=== PATIENT | female | born 1965 | race Caucasian/White ===

== ENCOUNTER 2019-07-06 23:20 | Observation (INO) | payer OTHER, SELFPAY ==
--- NOTE | ~2019-07-06 | US_ITS ---
EXAMINATION: US right upper quadrant DATE: 07/07/2019 12:42 INDICATION: Abnormal liver function tests TECHNIQUE: Multiple grayscale and Doppler ultrasound images of the abdomen were obtained. COMPARISON: CT abdomen and pelvis 03/09/2017 FINDINGS: The visualized portions of the head and body of the pancreas are normal. There is diffuse h epatic steatosis. There is normal flow in main portal vein. The gallbladder is absent. The common sirisha t is normal and measures 7 mm. IMPRESSION: 1. Diffuse hepatic steatosis. Reviewed, dictated and finalized at location A. WORKER
--- NOTE | ~2019-07-06 | XR_ITS ---
EXAMINATION: XR chest 2V DATE: 07/06/2019 23:43 INDICATION: Midline chest pain TECHNIQUE: PA and lateral views of the chest are obtained. COMPARISON: 05/17/2016 FINDINGS: The lungs are free of acute opacities. There is no pleural effusion or pneumothorax. The ca rdiomediastinal silhouette is normal. There is mild thoracic spondylosis. Cholecystectomy clips are n oted in the right upper quadrant. IMPRESSION: 1. No acute cardiopulmonary abnormality. Reviewed, dictated and finalized at location A. ING SUBCONTRACTOR
--- NOTE | ~2019-07-06 | NM_ITS ---
EXAMINATION: NM stress w perf spect multi DATE: 07/07/2019 15:37 INDICATION: Chest pain. TECHNIQUE: Rest images were obtained following intravenous administration of 9.7 mCi Tc99m tetrofosmi n (Tillerview). The patient performed an exercise activity. At peak exercise, 28.32 mCi Tc99m tetrofosmi n (Myoview) was administered intravenously, and stress images were obtained. Data was reconstructed i nto short axis and horizontal and vertical long axis SPECT images. Gated SPECT images were also obtai kecia. COMPARISON: None. FINDINGS: There is no definite reversible or fixed perfusion abnormality to suggest ischemia or infar ction. There is no segmental wall motion abnormality. Left ventricular ejection fraction measures > 70%. IMPRESSION: 1. No definite ischemia or infarct. 2. Normal left ventricular ejection fraction measuring >70%. Reviewed, dictated and finalized at location A. ROL SYSTEM COMPUTER SCIENTIST
--- NOTE | 2019-07-06 23:24 | ECG_ITS ---
Measurements Intervals [place] Rate: 71 P: 17 ID: 107 QRS: 2 QRSD: 82 T: 13 QT: 398 QTc: 435 Interpretive Statements SINUS RHYTHM WITH SHORT ID INTERVAL BORDERLINE T WAVE ABNORMALITY- INFERIOR LEADS BASELINE ARTIFACT- I, II, III, AVL, AVF BORDERLINE ECG Electronically Signed On 07-07-2019 15:42:25 ENVIRONMENTAL HEALTH NURSE by Dario Mars D.O.
[2019-07-06 23:44] LABS: Basophils Absolute Auto 0.1 K/mm3 (0.0-0.1); Basophils Percent Auto 0.7 % (0.2-1.2); Eosinophils Absolute Auto 0.3 K/mm3 (0-0.3); Eosinophils Percent Auto 3.5 % (0-4.4); Hematocrit 43.6 % (37.0-47.0); Hemoglobin 14.2 g/dL (12.0-15.0); Immature Granulocyte Absolute 0.03 K/mm3 (0.00-0.031); Immature Granulocyte Percent A 0.3 % (0-0.5); Lymphocytes Percent Auto 31.9 % (18.3-44.2); Mean Corpuscular HGB Conc 32.6 g/dl (32-36); Mean Corpuscular Hemoglobin 27.8 pg (26-34); Mean Corpuscular Volume 85.5 fl (80-100); Mean Platelet Volume 9.9 fl (7.4-10.4); Monocytes Absolute Auto 0.8 K/mm3 (0.1-0.6); Neutrophils Percent Auto 54.6 % (45.5-73.1); Platelet Count Result 359 k/mm3 (150-375); Red Cell Distribution Width 13.4 % (11.5-14.5); White Blood Count 9.1 K/mm3 (4.5-10.0)
[2019-07-06 23:53] LABS: Prothrombin Time 12.8 Seconds (11.1-14.7)
[2019-07-06 23:54] LABS: Partial Thromboplastin Time 33.9 SECONDS (22.3-36.8)
[2019-07-06 23:59] LABS: Blood Urea Nitrogen 9 mg/dL (7-17); Calcium 9.3 mg/dL (8.4-10.2); Carbon Dioxide 32 mmol/L (22-30); Chloride 97 mmol/L (98-107); Estimated Glomerular Filt Rate > 60; Glucose 79 mg/dL (65-105); Potassium 3.4 mmol/L (3.4-5.0); Sodium 140 mmol/L (137-145)
[2019-07-07] VITALS (10 sets, daily range): BP systolic 113–140; BP diastolic 64–90; PULSE 64–97; RESP 12–20; TEMP 36.3–36.8; O2SAT 98–100; BMI 39.5
[2019-07-07 00:09] LABS: Troponin I < 0.012 ng/mL (0.000-0.034)
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
[2019-07-07] MEDS: ASPIRIN 81 MG CHEWABLE TABLET 324 MG PO (00:47)
[2019-07-07] MEDS: KETOROLAC 30 MG/ML VIAL (*BKC) IV PUSH (00:48)
[2019-07-07 01:22] LABS: Alanine Aminotransferase 40 U/L (4-35); Albumin Level 4.6 g/dL (3.5-5.1); Alkaline Phosphatase 137 U/L (38-126); Aspartate Amino Transferase 37 U/L (14-36); Bilirubin,Total 0.6 mg/dL (0.2-1.3); Lipase 150 U/L (23-300)
--- NOTE | 2019-07-07 02:52 | ADMGEN ---
This patient, Zulema Arce, was admitted to [facility] at 0230. Patient/family oriented to hospital policies and general routines including ID bracelet, bed and alarms, visiting hours, pain management, procedures, bathroom and other care routines, personal items, smoking policy, room service/diet, and visiting hours. Valuables list has been completed. Information on how to activate the Rapid Response Team has been discussed. Patient/Family are encouraged to report perceived risks to care and to ask questions if they do not understand what they are told or what they should do.
[2019-07-07 03:14] LABS: Cholesterol 190 mg/dL (0-200); HDL Direct 29 mg/dL; Triglycerides 261 mg/dL (<150)
[2019-07-07 03:23] LABS: Troponin I < 0.012 ng/mL (0.000-0.034)
[2019-07-07 03:26] LABS: LDL Cholesterol Direct 120 mg/dL
[2019-07-07 03:41] LABS: D Dimer 0.27 ug/mL (<0.48)
--- NOTE | 2019-07-07 04:27 | ECG_ITS ---
Measurements Intervals [place] Rate: 63 P: 22 ID: 103 QRS: 3 QRSD: 102 T: 10 QT: 446 QTc: 457 Interpretive Statements SINUS RHYTHM WITH SHORT ID INTERVAL BORDERLINE T WAVE ABNORMALITY- INFERIOR LEADS BASELINE ARTIFACT- I, II, III, AVR, AVL, AVF BORDERLINE ECG Electronically Signed On 07-07-2019 15:44:30 PARTS COUNTER SALES PERSON by Dario Mars D.O.
[2019-07-07 06:15] LABS: Troponin I < 0.012 ng/mL (0.000-0.034)
--- NOTE | 2019-07-07 07:27 | ECG_ITS ---
Measurements Intervals [place] Rate: 65 P: 32 [place]: 105 QRS: 4 QRSD: 87 T: 9 QT: 445 QTc: 464 Interpretive Statements SINUS RHYTHM WITH SHORT [place] INTERVAL BORDERLINE T WAVE ABNORMALITY- II, III, AVR, AVL, AVF BORDERLINE ECG Electronically Signed On 07-07-2019 15:50:46 SCRUBBER SYSTEM ATTENDANT by Dario Mars D.O.
--- NOTE | 2019-07-07 07:43 | PM.IMHP ---
H&P: HPI History of Present Illness Chief complaint: chest pain Narrative: Zulema Arce is a 54 year old female With history of obesity, came to the hospital because of chest pain. Started having chest pain as she was driving last night at 8:00 p.m., heaviness in the center of the chest with no radiation. With that she has some shortness of breath. No known history of coronary disease but she stated that she had a stress test few years ago which was negative. She is not very active but she has mild to moderate dyspnea on exertion orthopnea no PNDs she has mild leg swelling. She gets occasional heartburn. So far cardiac enzymes are negative, EKG is unremarkable. Review of Systems Constitutional: Constitutional: Reports fatigue and Reports lethargy Cardiovascular: Cardiovascular: Reports as per HPI Respiratory: Respiratory: Reports dyspnea on exertion PMFSH Past Medical History Medical History Anemia Arthritis Asthma Depression GERD (gastroesophageal reflux disease) Hx of migraines Ulcer Surgical History Surgical History History of cholecystectomy History of hysterectomy Hx of tubal ligation Family History Family History Father Diabetes mellitus Hypertension Heart disease Emphysema lung Smokeless tobacco use Glaucoma Cataract Heart failure Mother Diabetes mellitus Cerebrovascular accident Osteoporosis Sibling Diabetes mellitus Cerebrovascular accident Sibling Diabetes mellitus Heart disease Smokeless tobacco use Malignant neoplasm of prostate Sibling Diabetes mellitus Epilepsy Suicide Sibling Diabetes mellitus Heart disease Smokeless tobacco use Congestive heart failure Sibling Diabetes mellitus Cerebrovascular accident Sibling Heart disease Smokeless tobacco use Cirrhosis Alcohol abuse Sibling Epilepsy Tumor liver Sibling Cerebrovascular accident Heart disease Smokeless tobacco use Sibling Glaucoma Sibling Heart disease Smokeless tobacco use Crohn disease Sibling Brain tumor Sibling Heart disease Smokeless tobacco use Sibling Graves disease Social History Social History Smoking status: Never smoker Second hand tobacco smoke exposure: Yes (family) Gender identity (if verbalized by the patient): Female Meds Home Medications and Allergies Home Medications Medication Instructions Recorded Confirmed Type albuterol sulfate [Ventolin HFA] 2 puff INHALATION QID 07/07/19 07/07/19 History ascorbic acid (vitamin C) [Vitamin 1 g PO DAILY 07/07/19 07/07/19 History C] aspirin [Aspir-81] 81 mg PO DAILY 07/07/19 07/07/19 History cetirizine [Zyrtec] 10 mg PO DAILY 07/07/19 07/07/19 History duloxetine [Cymbalta] 60 mg PO BID 07/07/19 07/07/19 History furosemide 40 mg PO DAILY 07/07/19 07/07/19 History metoprolol tartrate 25 mg PO BID 07/07/19 07/07/19 History montelukast [Singulair] 10 mg PO HS 07/07/19 07/07/19 History mq-in-CX-vit P-hlzmf-ovz-coQ10 1 cap PO DAILY 07/07/19 07/07/19 History [Daily Multivitamin] pantoprazole [Protonix] 40 mg PO DAILY 07/07/19 07/07/19 History Allergies Allergy/AdvReac Type Severity Reaction Status Date / Time Sulfa (Sulfonamide Allergy Unknown RASH Verified 01/19/17 07:27 Antibiotics) Vital Signs Vital Signs - 24 hr 07/07/19 00:18 07/07/19 01:36 07/07/19 02:30 Temperature 36.8 C 36.3 C L Pulse Rate 73 74 69 Respiratory Rate 16 16 15 Blood Pressure 126/68 140/90 140/80 Pulse Oximetry 100 100 99 07/07/19 05:46 Temperature Pulse Rate 88 Respiratory Rate 20 Blood Pressure 118/74 Pulse Oximetry 98 Exam Narrative: Exam Narrative: Awake alert oriented x3 not in acute distress Neck is supple no obvious JVD, no carotid bruit Chest: Good air entry bilat
--- NOTE | 2019-07-07 14:00 | EST_ITS ---
Patient Info Name: Zulema Arce Age: 54 years : 1965 Gender: Female Ht: 62 in Wt: 216 lbs BSA: 2.12 m2 Exam Date: 07/07/2019 1:44 PM Exam Location: [facility] Stress Exam [facility] Patient Status: Outpatient Admit Date: 07/07/2019 Staff Ordering Physician: Dung Driver MD Attending Provider: Dung Driver MD Exercise Technologist: Annabelle Liang RDCS Exam Type: CA stress test treadmill w NM Study Info Indications R07.89 - Other chest pain A treadmill exercise stress test was performed. Summary 1. Nuclear stress EKG: Patient exercised for 6 minutes on Isaias protocol achieved 7 METS. Heart rate 65 at rest, increased to 168 at peak exercise which was 100% of max predicted heart rate. BP was 150/77 at rest and increased to 212/96 Resting EKG showed sinus rhythm. EKG at peak exercised showed sinus tachycardia with no significant ST changes. Nuclear Stress EKG is negative for inducible ischemia at 100% of max predicted heart rate. Somewhat exaggerated blood pressure response to exercise noted. Findings of the nuclear images to be reported separately. Protocol: Manual Mode Stress ECG Details Stage: REST Duration (min): 7 min : 54 sec Chaudhry: --- Speed (mph): 0.0 Grade (%): 0 HR (bpm): 66 SBP (mmHg): 150 DBP (mmHg): 77 METS: --- Stage: REST Duration (min): 40 min : 39 sec Chaudhry: --- Speed (mph): 0.0 Grade (%): 0 HR (bpm): 79 SBP (mmHg): 150 DBP (mmHg): 77 METS: --- Stage: STAGE 1 Duration (min): 1 min : 0 sec Chaudhry: --- Speed (mph): 1.7 Grade (%): 10 HR (bpm): 132 SBP (mmHg): 150 DBP (mmHg): 77 METS: --- Stage: STAGE 1 Duration (min): 2 min : 0 sec Chaudhry: --- Speed (mph): 1.7 Grade (%): 10 HR (bpm): 146 SBP (mmHg): 150 DBP (mmHg): 77 METS: --- Stage: STAGE 1 Duration (min): 3 min : 0 sec Chaudhry: --- Speed (mph): 1.7 Grade (%): 10 HR (bpm): 152 SBP (mmHg): 156 DBP (mmHg): 83 METS: --- Stage: STAGE 2 Duration (min): 1 min : 0 sec Chaudhry: --- Speed (mph): 2.5 Grade (%): 12 HR (bpm): 161 SBP (mmHg): 156 DBP (mmHg): 83 METS: --- Stage: STAGE 2 Duration (min): 2 min : 0 sec Chaudhry: --- Speed (mph): 2.5 Grade (%): 12 HR (bpm): 168 SBP (mmHg): 166 DBP (mmHg): 88 METS: --- Stage: STAGE 2 Duration (min): 3 min : 0 sec Chaudhry: --- Speed (mph): 2.0 Grade (%): 0 HR (bpm): 163 SBP (mmHg): 166 DBP (mmHg): 88 METS: --- Stage: STAGE 2 Duration (min): 3 min : 30 sec Chaudhry: --- Speed (mph): 2.0 Grade (%): 0 HR (bpm): 157 SBP (mmHg): 166 DBP (mmHg): 88 METS: --- Stage: RECOVERY Duration (min): 0 min : 29 sec Chaudhry: --- Speed (mph): 0.0 Grade (%): 0 HR (bpm): 149 SBP (mmHg): 212 DBP (mmHg): 96 METS: --- Stage: RECOVERY Duration (min): 1 min : 29 sec Chaudhry: --- Speed (mph): 0.0 Grade (%): 0 HR (
--- NOTE | 2019-07-07 17:08 | PC.NURSE ---
1700-pt given d/c orders and instructions. Questions answered and verbalized understanding. PIV removed intact. Ambulated per request to waiting vehicle. No distress noted or verbalized at time of D/C.
--- NOTE | 2019-08-11 17:14 | PM.DS ---
DS: Diagnosis Admitting Diagnosis Admitting Diagnosis: Chest pain, unspecified Discharge Diagnosis (1) Chest pain: Code(s): R07.9 - Chest pain, unspecified Status: Acute Assessment and Plan: Zulema Arce is a 54 year old female With history of obesity, came to the hospital because of chest pain. Started having chest pain as she was driving last night at 8:00 p.m., heaviness in the center of the chest with no radiation. With that she has some shortness of breath. No known history of coronary disease but she stated that she had a stress test few years ago which was negative. She is not very active but she has mild to moderate dyspnea on exertion orthopnea no PNDs she has mild leg swelling. She gets occasional heartburn. So far cardiac enzymes are negative, EKG is unremarkable. she has atypical chest pain, however she has significant risk factors for coronary artery disease. Stress test was done and negative for ischemia. She was discharged in stable condition with follow up with PCP (2) Dyslipidemia: Code(s): E78.5 - Hyperlipidemia, unspecified Status: Acute Assessment and Plan: will check lipid profile treat accordingly DS: Summary Time Spent with Patient Time attestation: Total time spent providing and/or coordinating discharge services: Exam Narrative: Exam Narrative: Awake alert oriented x3 not in acute distress Neck is supple no obvious JVD, no carotid bruit Chest: Good air entry bilaterally, lungs are clear to auscultation and percussion bilaterally Cardiovascular: Regular rate and rhythm, 2/6 systolic murmur noted left sternal border Abdomen: Soft nontender bowel sounds positive Extremities: No edema has good pulses distally bilaterally Discharge Plan Discharge Attending physician on discharge: Lizeth Tidwell Consulting providers: James Petty ; Dario Mars ; Ghulam Lopez V. Discharging Clinician: Lizeth Tidwell Anticipated Discharge Date/Time: 07/07/19 16:35 Patient Disposition: Home, Self-Care Activity: unlimited Diet: as tolerated and low cholesterol Patient Instructions: Chest Pain (ED) Stand Alone Forms: General Discharge Information Follow-up/Referrals: José Miguel Nayak MD [Primary Care Provider] - Discharge Medications: Continued furosemide 40 mg Tablet 40 mg PO DAILY RF: 0 pantoprazole [Protonix] 40 mg Tablet,Delayed Release (Dr/Ec) 40 mg PO DAILY RF: 0 montelukast [Singulair] 10 mg Tablet 10 mg PO HS RF: 0 metoprolol tartrate 25 mg Tablet 25 mg PO BID RF: 0 duloxetine [Cymbalta] 60 mg Capsule,Delayed Release(Dr/Ec) 60 mg PO BID RF: 0 ascorbic acid (vitamin C) [Vitamin C] 1,000 mg Tablet 1 g PO DAILY RF: 0 Zyrtec 10 mg Capsule 10 mg PO DAILY RF: 0 Daily Multivitamin 200-100-500 mcg Capsule 1 cap PO DAILY RF: 0 aspirin [Aspir-81] 81 mg Tablet,Delayed Release (Dr/Ec) 81 mg PO DAILY RF: 0 albuterol sulfate [Ventolin HFA] 90 mcg/actuation Hfa Aerosol Inhaler 2 puff INHALATION QID RF: 0 Date of admission: 07/07/19 01:27 Primary Care Provider: José Miguel Nayak Admitting Provider: Dung Driver Date/Time: 07/07/19 17:00 Attending physician on admission: Lizeth Tidwell Condition: Stable
== END 2019-07-07 17:00 | disposition home or self-care (01) ==
LOC: ANHED 07-07 01:28 → ANHCPC 07-07 01:41
PROVIDERS: Admitting Provider Specialist; Emergency Provider Emergency Medicine; PCP Family Medicine; Visit Provider Internal Medicine
DX: R07.89 Other chest pain (principal); E78.5 Hyperlipidemia, unspecified; J45.909 Unspecified asthma, uncomplicated; K21.9 Gastro-esophageal reflux disease without esophagitis; M19.90 Unspecified osteoarthritis, unspecified site; F32.9 Major depressive disorder, single episode, unspecified; Z79.82 Long term (current) use of aspirin; Z79.899 Other long term (current) drug therapy; Z88.2 Allergy status to sulfonamides
CPT/HCPCS: 36415; 71046; 76705; 78452; 80048; 80061; 80076; 83690; 84484; 85025; 85380; 85610; 85730; 93005; 93017; 96374; 99285; A9270; A9502; G0378; J1885

== ENCOUNTER 2019-11-05 18:41 | Emergency (ER) | payer OTHER, SELFPAY ==
--- NOTE | ~2019-11-05 | CT_ITS ---
EXAMINATION: CT brain wo con DATE: 11/05/2019 19:36 INDICATION: Unresponsive TECHNIQUE: Computed tomography (CT) of the head was performed without intravenous contrast. Sagittal and coronal reconstructions were performed. The mA was adjusted according to patient size. Iterative reconstruction technique was employed. The dose-length product was 605.33 mGy-cm. COMPARISON: None FINDINGS: No acute intracranial hemorrhage, acute infarction or abnormal extra axial fluid collection. Ventricl es are normal and symmetric. No mass/mass effect. The orbits, paranasal sinuses and mastoid air cells are normal. IMPRESSION: 1. Normal head CT. Reviewed, dictated and finalized at location A. IMPRESSION: 1. Normal head CT.
[2019-11-05 18:50] VITALS: BP 151/86; PULSE 108; RESP 16; TEMP 37.4; O2SAT 100
--- NOTE | 2019-11-05 19:06 | ECG_ITS ---
Measurements Intervals [place] Rate: 95 P: 54 AR: 128 QRS: -1 QRSD: 81 T: 39 QT: 365 QTc: 461 Interpretive Statements SINUS RHYTHM BASELINE WANDER- AVL, V4-V5 NORMAL ECG Electronically Signed On 11-06-2019 7:37:43 CDT by Dario Mars D.O.
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
[2019-11-05 19:26] LABS: Base Excess ABG 2.3 mmol/L (0-2); HCO3 ABG 25.8 mmol/L (23-29); Oxygen Content ABG 18.9 %vol (16.0-22.0); Oxygen Saturation ABG 92.3 % (95-97); Oxyhemoglobin 91.8 % (94-100); PCO2 ABG 36.3 mmHg (35-45); PO2 ABG 59.5 mmHg (80-90); Total Hemoglobin 14.7 g/dL; pH ABG 7.47 (7.35-7.45)
[2019-11-05 19:26] LABS: Basophils Absolute Auto 0.05 K/mm3 (0.00-0.10); Basophils Percent Auto 0.5 % (0.0-1.0); Eosinophils Absolute Auto 0.16 K/mm3 (0.02-0.50); Eosinophils Percent Auto 1.7 % (1.0-6.0); Hematocrit 42.1 % (35.0-49.0); Immature Granulocyte Absolute 0.03 K/mm3 (0.00-0.00); Immature Granulocyte Percent A 0.3 % (0.0-0.0); Lymphocytes Absolute Auto 1.87 K/mm3 (1.10-4.50); Lymphocytes Percent Auto 20.1 % (18.0-42.0); Mean Corpuscular HGB Conc 33.3 g/dL (32.0-36.0); Mean Corpuscular Hemoglobin 28.3 pg (27.0-31.0); Mean Corpuscular Volume 85.1 fL (78.0-102.0); Mean Platelet Volume 10.3 fl (9.2-11.8); Monocytes Percent Auto 6.4 % (2.0-11.0); Neutrophils Absolute Auto 6.6 K/mm3 (1.7-7.2); Platelet Count Result 315 K/mm3 (150-420); Red Blood Count 4.95 M/mm3 (4.20-5.40); Red Cell Distribution Width 13.4 % (11.6-14.4); White Blood Count 9.3 K/mm3 (4.8-10.8)
[2019-11-05 19:28] LABS: Device ROOM AIR; Modified Allen's Test Unable to perform; Site Drawn RIGHT RADIAL
[2019-11-05 19:34] VITALS: BP 131/64; PULSE 88; RESP 14; O2SAT 97
--- NOTE | 2019-11-05 19:35 | PC.NURSE ---
Patient returned from CT, VSS, remains unresponsive to stimuli. Pt with eyes open and blinking. Three ticks removed from patient skin
[2019-11-05 19:43] LABS: Add Urine Microscopic? NO; Appearance Urine Clear (Clear); Bilirubin Urine Negative (Negative); Blood Urine Negative (Negative); Color Urine Yellow (Yellow); Glucose Urine UA Negative (Negative); Ketones Urine Negative (Negative); Leukocyte Esterase Ur Negative (Negative); Nitrate Urine Negative (Negative); Protein Urine Negative (Negative); pH Urine 5.5 (5.0-8.0)
[2019-11-05 19:46] LABS: Alanine Aminotransferase 33 U/L (14-59); Albumin Level 3.9 g/dL (3.4-5.0); Alkaline Phosphatase 135 U/L (46-116); Anion Gap 14.6 mmol/L (7-16); Aspartate Amino Transferase 26 U/L (15-37); Bilirubin,Total 0.6 mg/dL (0.00-1.00); Blood Urea Nitrogen 15 mg/dL (7-18); Calcium 9.6 mg/dL (8.5-10.1); Carbon Dioxide 31 mmol/L (21-32); Chloride 101 mmol/L (98-108); Estimated Glomerular Filt Rate 47; Glucose 100 mg/dL (70-99); Osmolality Calculated 296 mOsm/kg (285-295); Potassium 3.6 mmol/L (3.5-5.1); Salicylate 1.7 mg/dL (2.8-20.0); Sodium 143 mmol/L (136-145); Total Protein 7.8 g/dL (6.4-8.2)
[2019-11-05 19:58] LABS: Amphetamine Screen Urine Negative (Negative); Barbiturate Screen Urine Negative (Negative); Benzodiazepines Screen Urine Negative (Negative); Cannabinoid Screen Urine Negative (Negative); Cocaine Screen Urine Negative (Negative); Methadone Screen Urine Negative (Negative); Opiate Screen Urine Negative (Negative); Phencyclidine Screen Urine Negative (Negative)
[2019-11-05 20:01] LABS: Acetaminophen 0 ug/mL (10-30)
[2019-11-05 20:13] VITALS: BP 120/58; PULSE 85; RESP 16; O2SAT 94
[2019-11-05 20:34] LABS: Ethanol < 3 mg/dL (0-6)
[2019-11-05 21:22] VITALS: BP 137/65; PULSE 94; RESP 14; O2SAT 100
--- NOTE | 2019-11-05 21:23 | PC.NURSE ---
Patient requires transfer for neurological evaluation. Spouse at bedside, he is requesting [facility]
[2019-11-05 21:55] VITALS: BP 123/64; PULSE 92; RESP 16; O2SAT 96
--- NOTE | 2019-11-05 21:56 | PC.NURSE ---
Patient accepted to [facility] and will be transferred via [facility] due to no [facility] available.
[2019-11-05 22:09] VITALS: BP 123/67; PULSE 88; RESP 16; O2SAT 100
[2019-11-05 22:39] LABS: Glucose Point of Care 100 (65-105)
== END 2019-11-05 22:30 | disposition short-term general hospital (02) ==
PROVIDERS: Emergency Provider Family Medicine; PCP Family Medicine
DX: F06.1 Catatonic disorder due to known physiological condition (principal); F32.9 Major depressive disorder, single episode, unspecified; J45.909 Unspecified asthma, uncomplicated; K21.9 Gastro-esophageal reflux disease without esophagitis; Z79.899 Other long term (current) drug therapy
CPT/HCPCS: 36415; 36600; 70450; 80053; 80307; 81003; 82805; 83605; 85025; 87040; 93005; 99283; 99285

== ENCOUNTER 2021-06-09 13:29 | Outpatient (CLI) | payer OTHER, SELFPAY ==
--- NOTE | 2021-06-09 13:40 | PC.NURSE ---
Pt to room 226 per wc. Infusion plan of care explained. Pt read and signed the consent. Pt has no questions or concerns. Oriented to room. Call roth in reach. Reminded to call with needs.
--- NOTE | 2021-06-09 13:59 | PC.NURSE ---
PT to room 226 per wc. A&Ox3. Infusion plan of care explained. Pt read and signed consent. Pt has no questions or complaints. Oriented to room. Call roth in reach. Reminded to call with needs.
[2021-06-09] MEDS: ACETAMINOPHEN 325 MG TABLET 650 MG PO (14:05)
[2021-06-09] MEDS: FAMOTIDINE 20 MG TABLET PO (14:06)
[2021-06-09] MEDS: diphenhydrAMINE HCl CAP 25 MG CAPSULE PO (14:06)
--- NOTE | 2021-06-09 15:20 | PC.NURSE ---
Pt has no complaints. Discharged to home per .
== END 2021-06-09 13:30 | disposition home or self-care (01) ==
PROVIDERS: PCP Family Medicine; Visit Provider Family Medicine
DX: U07.1 COVID-19 (principal); J44.9 Chronic obstructive pulmonary disease, unspecified
CPT/HCPCS: A9270; M0245; Q0245

== ENCOUNTER 2022-01-28 19:44 | Emergency (ER) | payer OTHER, SELFPAY ==
--- NOTE | ~2022-01-28 | XR_ITS ---
EXAM: XR knee RT min 4V DATE: 01/28/2022 20:08 HISTORY: pain-nwb . COMPARISON: None available. FINDINGS: Decreased mineralization. No fracture or dislocation. No lytic or blastic lesion. Mild med ial joint space narrowing and osteophytosis. No erosion or periosteal change. Soft tissues within nor mal limits. Large volume joint fluid. IMPRESSION: No acute osseous finding in the right knee. Large right knee joint effusion. Reviewed, dictated and finalized at location K.
[2022-01-28 19:47] VITALS: BP 135/98; PULSE 80; RESP 16; O2SAT 100
--- NOTE | 2022-01-28 21:22 | ED.LOWEXIN ---
HPI - Extremity Injury (Lower) General Chief Complaint: Extremity Injury, Lower Stated Complaint: right knee and leg pain Time Seen by Provider: 01/28/22 21:19 Related Data Home Medications Medication Instructions Recorded Confirmed albuterol sulfate 90 mcg/actuation 2 puff inhalation QID 07/07/19 11/05/19 aerosol inhaler (Ventolin HFA) aspirin 81 mg tablet,delayed 81 mg PO DAILY 07/07/19 11/05/19 release (Aspir-) duloxetine 60 mg capsule,delayed 60 mg PO BID 07/07/19 11/05/19 release (Cymbalta) furosemide 40 mg tablet 40 mg PO DAILY 07/07/19 11/05/19 metoprolol tartrate 25 mg tablet 25 mg PO BID 07/07/19 11/05/19 [id number]-zld-OS 200 mcg-vit K 100 1 cap PO DAILY 07/07/19 11/05/19 mcg-lycop 500 [id number] capsule (Daily Multivitamin) pantoprazole 40 mg tablet,delayed 40 mg PO DAILY 11/05/19 11/05/19 release Allergies Allergy/AdvReac Type Severity Reaction Status Date / Time Sulfa (Sulfonamide Allergy Unknown RASH Verified 01/28/22 21:17 Antibiotics) [facility] Past Medical History Medical History (Updated 01/29/22 @ 00:23 by Elliott Trivedi MD) Anemia Arthritis Asthma Depression GERD (gastroesophageal reflux disease) Hx of migraines Ulcer Surgical History Surgical History History of cholecystectomy History of hysterectomy Hx of tubal ligation Family History Family History Father Diabetes mellitus Hypertension Heart disease Emphysema lung Smokeless tobacco use Glaucoma Cataract Heart failure Mother Diabetes mellitus Cerebrovascular accident Osteoporosis Sibling Diabetes mellitus Cerebrovascular accident Sibling Diabetes mellitus Heart disease Smokeless tobacco use Malignant neoplasm of prostate Sibling Diabetes mellitus Epilepsy Suicide Sibling Diabetes mellitus Heart disease Smokeless tobacco use Congestive heart failure Sibling Diabetes mellitus Cerebrovascular accident Sibling Heart disease Smokeless tobacco use Cirrhosis Alcohol abuse Sibling Epilepsy Tumor liver Sibling Cerebrovascular accident Heart disease Smokeless tobacco use Sibling Glaucoma Sibling Heart disease Smokeless tobacco use Crohn disease Sibling Brain tumor Sibling Heart disease Smokeless tobacco use Sibling Graves disease Social History Social History Smoking status: Never smoker Second hand tobacco smoke exposure: Yes (family) Gender identity (if verbalized by the patient): Female Course Vital Signs Vital signs: Vital Signs Pulse Rate 80 01/28/22 19:47 Respiratory Rate 16 01/28/22 19:47 Blood Pressure 135/98 H 01/28/22 19:47 Pulse Oximetry 100 01/28/22 19:47 Pulse Rate 80 01/28/22 19:47 Respiratory Rate 16 01/28/22 19:47 Blood Pressure 135/98 H 01/28/22 19:47 Pulse Oximetry 100 01/28/22 19:47 MDM - Extremity Injury (Lower) Lab Data Labs: Lab Results 01/28/22 01/28/22 01/28/22 Range/Units 22:43 22:43 22:43 Synovial Source Synovial fluid Synovial Color Red (Colorless) Synovial Appearance Clear (Clear) Synovial RBC 19733 H (0-0) /uL Synovial Nuc Cells 488 H (0-200) /uL Synovial Neutrophils 20 (0-25) % Synovial Lymphocytes 9 % Synovial Monocytes 51 % Synovial Macrophages 18 % Synovial Other Cells 2 % Synovial Crystals (None Seen) Synovial Glucose Pending Synovial Total Protein Pending 01/28/22 Range/Units 22:43 Synovial Source Synovial Color (Colorless) Synovial Appearance (Clear) Synovial RBC (0-0) /uL Synovial Nuc Cells (0-200) /uL Synovial Neutrophils (0-25) % Synovial Lymphocytes % Synovial Monocytes % Synovial Macrophages % Synovial Other Cells % Synovial Crystals None seen (None Seen) Synovial Glucos
[2022-01-28] MEDS: HYDROcodone/acetaminophen (*CRX) 5-325 MG TABLET 2 TAB PO (22:47)
[2022-01-28 23:51] LABS: Appearance Synovial Fluid Clear (Clear); Color Synovial Fluid Red (Colorless); Nucleated Cell Synovial Fluid 488 /uL (0-200); Source Synovial Fluid Synovial fluid
[2022-01-28 23:52] LABS: Lymphocytes Synovial Fluid 9 %; Macrophages Synovial Fluid 18 %; Monocytes Synovial Fluid 51 %; Neutrophils Synovial Fluid 20 % (0-25); Other Cells Synovial Fluid 2 %; RBC Synovial Fluid 24590 /uL (0-0)
[2022-01-28 23:53] LABS: Crystals Synovial Fluid None Seen (None Seen)
--- NOTE | 2022-01-29 00:02 | ED.GENADULT ---
HPI - General Adult General Chief complaint: Extremity Injury, Lower Stated complaint: right knee and leg pain Time Seen by Provider: 01/28/22 21:19 History of Present Illness HPI narrative: This is a 57-year-old female with a history of arthritis presenting to ED with right leg pain. Patient says that the pain has been ongoing for the last 2 weeks on and off. However the last 2 days it has gotten significantly worse. It is worse at the end of the day. It improves in the morning. She has also noted that she has had increased swelling of the knee. She has taken occasional Advil for pain control. It is not provided much relief. Patient denies any warmth or redness to the knee. She denies any history of trauma. She denies any history of STDs, IV drug abuse these. Related Data Home Medications Medication Instructions Recorded Confirmed albuterol sulfate 90 mcg/actuation 2 puff inhalation QID 07/07/19 11/05/19 aerosol inhaler (Ventolin HFA) aspirin 81 mg tablet,delayed 81 mg PO DAILY 07/07/19 11/05/19 release (Aspir-) duloxetine 60 mg capsule,delayed 60 mg PO BID 07/07/19 11/05/19 release (Cymbalta) furosemide 40 mg tablet 40 mg PO DAILY 07/07/19 11/05/19 metoprolol tartrate 25 mg tablet 25 mg PO BID 07/07/19 11/05/19 [id number]-DH 200 mcg-vit K 100 1 cap PO DAILY 07/07/19 11/05/19 mcg-lycop 500 [id number] capsule (Daily Multivitamin) pantoprazole 40 mg tablet,delayed 40 mg PO DAILY 11/05/19 11/05/19 release Allergies Allergy/AdvReac Type Severity Reaction Status Date / Time Sulfa (Sulfonamide Allergy Unknown RASH Verified 01/28/22 21:17 Antibiotics) Review of Systems Review of Systems: CONSTITUTIONAL: Denies night sweats. EYES: No eye pain ENT: Denies rhinorrhea CARDIOVASCULAR: Denies palpitations RESPIRATORY: Denies hemoptysis GASTROINTESTINAL: Denies hematemesis GENITOURINARY: Denies hematuria. SKIN: Denies rash MUSCULOSKELETAL: Denies myalgia. NEUROLOGIC: Denies weakness. PSYCHIATRIC: Denies delusions PMFSH Past Medical History Medical History (Updated 01/29/22 @ 00:23 by Elliott Trivedi MD) Anemia Arthritis Asthma Depression GERD (gastroesophageal reflux disease) Hx of migraines Ulcer Surgical History Surgical History History of cholecystectomy History of hysterectomy Hx of tubal ligation Family History Family History Father Diabetes mellitus Hypertension Heart disease Emphysema lung Smokeless tobacco use Glaucoma Cataract Heart failure Mother Diabetes mellitus Cerebrovascular accident Osteoporosis Sibling Diabetes mellitus Cerebrovascular accident Sibling Diabetes mellitus Heart disease Smokeless tobacco use Malignant neoplasm of prostate Sibling Diabetes mellitus Epilepsy Suicide Sibling Diabetes mellitus Heart disease Smokeless tobacco use Congestive heart failure Sibling Diabetes mellitus Cerebrovascular accident Sibling Heart disease Smokeless tobacco use Cirrhosis Alcohol abuse Sibling Epilepsy Tumor liver Sibling Cerebrovascular accident Heart disease Smokeless tobacco use Sibling Glaucoma Sibling Heart disease Smokeless tobacco use Crohn disease Sibling Brain tumor Sibling Heart disease Smokeless tobacco use Sibling Graves disease Social History Social History Smoking status: Never smoker Second hand tobacco smoke exposure: Yes (family) Gender identity (if verbalized by the patient): Female Exam Narrative: APPEARANCE: No apparent distress. Head atraumatic. EYES: PERRLA/EOMI, NOSE: Normal no drainage NECK: Supple, Trachea midline RESPIRATORY: CTAB, No increased work of breathing. CARDIOVASCULAR: S1S2 appreciated ABDOMINAL: Soft, nontender, nondistended, MUSCULOSKELETAl: Noted effusion of the righ
[2022-01-29 00:38] VITALS: BP 140/87; PULSE 80; RESP 16; O2SAT 99
--- NOTE | 2022-01-29 04:36 | PC.NURSE ---
ON 01/29/2022 AT 0014 LAB CALLED AND MADE THIS CHARGE NURSE AWARE OF THIS PT'S GRAM STAIN OF SYNOVIAL FLUID RESULTED IN NO ORGANISMS SEEN.
[2022-02-04 10:32] LABS: Total Protein Synovial Fluid 3.1
== END 2022-01-29 00:34 | disposition home or self-care (01) ==
PROVIDERS: Emergency Provider Emergency Medicine; PCP Family Medicine
DX: M17.11 Unilateral primary osteoarthritis, right knee (principal); J45.909 Unspecified asthma, uncomplicated; K21.9 Gastro-esophageal reflux disease without esophagitis; F32.A Depression, unspecified; Z86.2 Personal history of diseases of the blood and blood-forming organs and certain disorders involving the immune mechanism; Z79.82 Long term (current) use of aspirin; Z90.710 Acquired absence of both cervix and uterus
CPT/HCPCS: 20605; 20610; 73564; 82945; 84157; 87070; 87075; 87205; 88108; 89051; 89060; 99283; A9270

== ENCOUNTER 2022-01-29 20:06 | Emergency (ER) | payer OTHER, SELFPAY ==
--- NOTE | ~2022-01-29 | XR_ITS ---
EXAMINATION: XR knee RT min 4V DATE: 01/29/2022 20:42 INDICATION: Right knee pain and bruising post fall TECHNIQUE: Anteroposterior, 2 oblique and crosstable lateral views of the right knee were obtained COMPARISON: None. FINDINGS: Alignment is normal. No fracture. Mild joint space narrowing in the medial compartment. Small to mod erate-sized right knee joint effusion without layering lipohemarthrosis. Soft tissues are otherwise u nremarkable. IMPRESSION: 1. Small to moderate-sized right knee joint effusion. No acute osseous abnormality. 2. Mild joint space narrowing consistent with at least mild osteoarthritis in the medial compartment. Reviewed, dictated and finalized at location A. IMPRESSION: 1. Small to moderate-sized right knee joint effusion. No acute osseous abnormal ity. 2. Mild joint space narrowing consistent with at least mild osteoarthritis in t he medial compartment.
[2022-01-29 20:09] VITALS: BP 143/69; PULSE 78; RESP 18; TEMP 36.4; O2SAT 98
--- NOTE | 2022-01-29 20:38 | ED.GENADULT ---
HPI - General Adult General Chief complaint: Extremity Injury, Lower Stated complaint: Right knee pain Time Seen by Provider: 01/29/22 20:19 History of Present Illness HPI narrative: 57-year-old female presented the emergency department for evaluation of right knee pain. Patient was seen in the emergency department yesterday and had a therapeutic tap on her right knee. Patient states that there is no evidence of of infection. Patient did have follow-up with her primary care physician was started on steroids. Patient also does have an outpatient MRI ordered. Patient was walking up a flight of stairs today and fell forward and did injure her right knee again. Patient does have increased pain with range of motion and weightbearing. Patient denies any other pain or injury. Related Data Home Medications Medication Instructions Recorded Confirmed albuterol sulfate 90 mcg/actuation 2 puff inhalation QID 07/07/19 11/05/19 aerosol inhaler (Ventolin HFA) aspirin 81 mg tablet,delayed 81 mg PO DAILY 07/07/19 11/05/19 release (Aspir-) duloxetine 60 mg capsule,delayed 60 mg PO BID 07/07/19 11/05/19 release (Cymbalta) furosemide 40 mg tablet 40 mg PO DAILY 07/07/19 11/05/19 metoprolol tartrate 25 mg tablet 25 mg PO BID 07/07/19 11/05/19 agnljzte-hhy-IP 200 mcg-vit K 100 1 cap PO DAILY 07/07/19 11/05/19 mcg-lycop 500 fug-[id number]-N10 capsule (Daily Multivitamin) pantoprazole 40 mg tablet,delayed 40 mg PO DAILY 11/05/19 11/05/19 release methylprednisolone 4 mg tablets in mg 01/29/22 01/29/22 a dose pack Allergies Allergy/AdvReac Type Severity Reaction Status Date / Time Sulfa (Sulfonamide Allergy Unknown RASH Verified 01/29/22 20:08 Antibiotics) Review of Systems Review of Systems: CONSTITUTIONAL: Denies fever, chills, or sweats. EYES: Denies visual changes, redness, or discharge. ENT: Denies rhinorrhea, congestion, sore throat, or otalgia. CARDIOVASCULAR: Denies chest pain, palpitations, or edema. RESPIRATORY: Denies cough or dyspnea. GASTROINTESTINAL: Denies abdominal pain, nausea, vomiting, or diarrhea. GENITOURINARY: Denies dysuria or hematuria. SKIN: Denies rash or itching. MUSCULOSKELETAL: See HPI NEUROLOGIC: Denies headache, numbness, or weakness. PSYCHIATRIC: Denies anxiety or depression. [facility] Past Medical History Medical History (Updated 01/29/22 @ 21:07 by Nikita Singh MD) Anemia Arthritis Asthma Depression GERD (gastroesophageal reflux disease) Hx of migraines Ulcer Surgical History Surgical History History of cholecystectomy History of hysterectomy Hx of tubal ligation Family History Family History Father Diabetes mellitus Hypertension Heart disease Emphysema lung Smokeless tobacco use Glaucoma Cataract Heart failure Mother Diabetes mellitus Cerebrovascular accident Osteoporosis Sibling Diabetes mellitus Cerebrovascular accident Sibling Diabetes mellitus Heart disease Smokeless tobacco use Malignant neoplasm of prostate Sibling Diabetes mellitus Epilepsy Suicide Sibling Diabetes mellitus Heart disease Smokeless tobacco use Congestive heart failure Sibling Diabetes mellitus Cerebrovascular accident Sibling Heart disease Smokeless tobacco use Cirrhosis Alcohol abuse Sibling Epilepsy Tumor liver Sibling Cerebrovascular accident Heart disease Smokeless tobacco use Sibling Glaucoma Sibling Heart disease Smokeless tobacco use Crohn disease Sibling Brain tumor Sibling Heart disease Smokeless tobacco use Sibling Graves disease Social History Social History Smoking status: Never smoker Second hand tobacco smoke exposure: Yes (family) Gender identity (if verbalized by the patient): Female Exam Narrative: APPEARANCE: Well appearing, no
== END 2022-01-29 21:24 | disposition home or self-care (01) ==
PROVIDERS: Emergency Provider Emergency Medicine; PCP Family Medicine
DX: S89.91XA Unspecified injury of right lower leg, initial encounter (principal); J45.909 Unspecified asthma, uncomplicated; K21.9 Gastro-esophageal reflux disease without esophagitis; Z86.2 Personal history of diseases of the blood and blood-forming organs and certain disorders involving the immune mechanism; Z79.82 Long term (current) use of aspirin; M17.11 Unilateral primary osteoarthritis, right knee; W10.9XXA Fall (on) (from) unspecified stairs and steps, initial encounter
CPT/HCPCS: 73564; 99283

== ENCOUNTER 2022-03-04 15:02 | Outpatient (RCR) | payer OTHER, SELFPAY ==
--- NOTE | 2022-03-04 16:24 | PTOPEVAL1 ---
Assessment and note entered by JT File, PT Evaluation Information Assessment Status Evaluation Diagnosis R knee pain Onset 01/18/22 Subjective Information patient reports she has been having pain in the R knee. she reports it began as infrequent pain. however, one morning she woke up and was unable to walk. she reports she went to the ER and was told she has an effusion in the knee. she reports they removed 50cc of fluid from the knee. she reports they did do an xray that day. she reports she followed up with her primary care the next day who gave her an oral steroid. she reports she fell coming home from the doctor that day when she was walking up her steps. she reports she went back to the ER after her fall to evaluate for any new damage. she reports she now uses crutches when her pain is so increased. she reports walking further than in her home causes increased pain. she reports she had an MRI of the R knee. she reports the MD thinks he may have seen a tear, but the report of the MRI did not show anything. she reports she had an injection of the R knee and was given another oral steroid. she reports the injection helped a bit. she reports she has increased pain with bending the knee fully back and with walking more than outside the home. she reports she is unable to squat. Reported Pain Level Pain Score 2: Self Report Assessment PT Clinical Summary mrs. palma presents to skilled PT with R knee pain from insidious onset. she presents this date with tenderness to palpation, decreased strength, decreased flexion rom compared to the L LE, and abnormal gait mechanics. she presents with signs and symptoms of possible medial hamstrings tendonitis and possible R medial meniscus meniscus /medial knee OA. she would do well to attend and participate in skilled PT to improve her objective /functional deficits and return to her prior level functional activity performance/quality of life. Plan of Care Interventions Electrical Stimulation,Gait Training,Hot Pack/Cold Pack,Manual Therapy,Neuro Re-education, Therapeutic Activities,Therapeutic Exercise PT Services Indicated Yes Treatment Frequency and 2x weekly for 8 visits Duration These treatments will address the objective and functional deficits as defined above. The patient will be advanced safely and appropriately in order for the patient to p
--- NOTE | 2022-03-30 08:54 | PTOPPROG ---
Assessment and note entered by Shantel Harrison DPT Evaluation Information Assessment Status Progress Diagnosis R knee pain Onset 01/18/22 Subjective Information Pt reports that overall, her knee is doing much better but it still gives her trouble especially after doing activities for prolonged periods of time. She notes most pain when initially standing up or when walking on it a lot. Assessment PT Clinical Summary Pt presents to physical therapy with significant improvements in strength and pain since her initial evaluation. She is still limited in her range of motion, gait pattern, and pain with functional activities such as squatting, walking, and using stairs. She will benefit from additional skilled PT to further facilitate symptom relief, improve the aforementioned impairments, and return to full functional and recreational activities. Plan of Care PT Services Indicated Yes Treatment Frequency and 1x week for 4 visits Duration These treatments will address the objective and functional deficits as defined above. The patient will be advanced safely and appropriately in order for the patient to progress towards his/her prior level of function. Additional exercises will be introduced and as well as a comprehensive home exercise program upon discharge, if needed, ?to ensure carryover of functional gains achieved in the clinic. This treatment plan has been reviewed and agreement upon by the patient.
--- NOTE | 2022-04-27 08:08 | PTOPDC ---
Assessment and note entered by JT File, PT Evaluation Information Assessment Status Discharge Diagnosis R knee pain Onset 01/18/22 Subjective Information patient reports she has no difficulty walking short distances, but increased pain with walking longer distances. she reports the transition from sitting to standing causes increased pain, as well as, squatting to the floor. she reports even activities of sweeping and mopping are more painful. she reports she has no symptoms of locking or catching in the R knee. she reports most of her pain is along the inside of the R knee . Reported Pain Level Pain Score 2: Self Report Assessment PT Clinical Summary mrs. palma continues to present with pain in the medial R knee with increased activities and prolonged sitting. she continues to display pain with medial mcmurrays test, palpation of the medial jt line of the R knee, and medial jt line pain with valgus stress test of the R knee. she has not met any goals other than for HEP education and mm flexibility. despite her negative imaging, jojo continues to present with signs and symptoms of a medial R meniscus tear. she will DC skilled PT this date due to lack of significant progress or improvement made. she would do well to return to MD for follow and guidance on next steps. Plan of Care Treatment Frequency and DC to independent HEP and MD follow up Duration
== END 2022-04-27 15:27 | disposition home or self-care (01) ==
LOC: CHSPT 15:02
PROVIDERS: PCP Family Medicine; Visit Provider Orthopaedic Surgery
DX: M25.561 Pain in right knee (principal)
CPT/HCPCS: 97014; 97110; 97112; 97161; 97530; G0283

== ENCOUNTER 2022-05-18 16:42 | Outpatient (CLI) | payer OTHER, SELFPAY ==
--- NOTE | ~2022-05-18 | XR_ITS ---
EXAMINATION: XR foot LT min 3V DATE: 05/18/2022 17:05 INDICATION: Left foot pain and swelling TECHNIQUE: Dorsoplantar, lateral, and 2 oblique views of the left foot were obtained. COMPARISON: None. FINDINGS: Bone alignment is normal. There is no fracture. There is dorsal soft tissue swelling of the foot overlying the metatarsals. A plantar calcaneal enthesophyte is noted. IMPRESSION: 1. Soft tissue swelling without acute osseous abnormality. Reviewed, dictated and finalized at location A. TRADER
== END 2022-05-18 16:43 | disposition home or self-care (01) ==
LOC: CHSIMG 16:45
PROVIDERS: PCP Family Medicine; Visit Provider Family Medicine
DX: M79.675 Pain in left toe(s) (principal)
CPT/HCPCS: 73630

== ENCOUNTER 2022-08-06 10:17 | Outpatient (CLI) | payer OTHER, BC, SELFPAY ==
--- NOTE | ~2022-08-06 | XR_ITS ---
Left foot Technique: AP, oblique, and lateral views were obtained. Clinical History: Gout COMPARISON: 05/18/2022 Findings: No acute fracture or dislocation is seen. Osseous alignment is anatomic. Plantar calcaneal spur noted. Joint spaces are otherwise preserved without erosive or degenerative change. Soft tissues are unremarkable. Impression: Plantar calcaneal spur, otherwise unremarkable exam. Reviewed, dictated and finalized at location . PORTER Impression: Plantar calcaneal spur, otherwise unremarkable exam.
== END 2022-08-06 10:18 | disposition home or self-care (01) ==
LOC: CHSIMG 10:21
PROVIDERS: PCP Family Medicine; Visit Provider Family Medicine
DX: M10.072 Idiopathic gout, left ankle and foot (principal); M77.32 Calcaneal spur, left foot
CPT/HCPCS: 73630

== ENCOUNTER 2022-09-29 14:05 | Observation (INO) | payer OTHER, BC, SELFPAY ==
[2022-09-29] VITALS (48 sets, daily range): BP systolic 106–139; BP diastolic 57–82; PULSE 80–123; RESP 7–22; TEMP 36.2–36.6; O2SAT 95–100; BMI 35.5
--- NOTE | ~2022-09-29 | CT_ITS ---
EXAMINATION: CT chest abdomen pelvis wo con DATE: 09/30/2022 14:54 INDICATION: Nausea and vomiting TECHNIQUE: Transaxial computed tomographic images of the chest, abdomen, and pelvis were obtained wit hout intravenous contrast. The dose-length product (DLP) was 1186.14 mGy-cm. Automated exposure contr ol and iterative reconstruction technique were employed. COMPARISON: 03/09/2017 FINDINGS: CHEST CT: There is mild dependent atelectasis. No focal airspace opacities are identified. There are a few smal l, thin-walled pulmonary cysts. No pleural effusion or pneumothorax. No pathologically enlarged thora cic lymph nodes are identified. The heart size is normal. Calcified pulmonary nodules and calcified m ediastinal lymph nodes are consistent with old granulomatous disease. There is mild thoracic spondyl osis. ABDOMEN/PELVIS CT: Punctate calcifications in otherwise normal appearing liver and spleen likely represent healed granul omatous disease. The pancreas and adrenal glands are normal. The gallbladder is surgically absent. Th e left kidney is unremarkable. There is a 2 mm nonobstructing stone of the right kidney. No pathologi flaquito enlarged abdominal or pelvic lymph nodes are identified. No free intraperitoneal gas or evidenc e of bowel obstruction. There is mild lumbar spondylosis. IMPRESSION: 1. No CT correlate for the patient's symptoms. Reviewed, dictated and finalized at location A.
--- NOTE | ~2022-09-29 | US_ITS ---
EXAMINATION: US abdomen limited DATE: 09/29/2022 16:21 INDICATION: Right upper quadrant pain TECHNIQUE: Multiple grayscale and Doppler ultrasound images of the abdomen were obtained. COMPARISON: 07/07/2019 FINDINGS: The head and body of the pancreas are normal. The pancreatic tail is obscured by bowel gas. The liver demonstrates increased echogenicity, heterogenous echotexture, and decreased through trans mission. No surface nodularity. Normal hepatopetal flow in the main portal vein. The gallbladder is s urgically absent. The normal common bile duct measures 6 mm. There was no sonographic Love sign. IMPRESSION: 1. Diffuse hepatic steatosis. Reviewed, dictated and finalized at location L.
--- NOTE | 2022-09-29 14:31 | ED.NAVMDI ---
HPI - Nausea/Vomiting/Diarrhea General Chief complaint: Nausea/Vomiting/Diarrhea Stated complaint: dizzy Time Seen by Provider: 09/29/22 14:29 Source: patient Mode of arrival: ambulatory Limitations: no limitations History of Present Illness HPI Narrative: Patient is a 57-year-old female with a history of hypertension, acid reflux, presenting to the emergency department for evaluation of nausea and vomiting. Patient states that yesterday began to feel slightly nauseated, which persisted overnight and has had nonbloody, nonbilious emesis today. Related Data Home Medications Medication Instructions Recorded Confirmed albuterol sulfate 90 mcg/actuation 2 puff inhalation QID 07/07/19 11/05/19 aerosol inhaler (Ventolin HFA) aspirin 81 mg tablet,delayed 81 mg PO DAILY 07/07/19 11/05/19 release (Aspir-) duloxetine 60 mg capsule,delayed 60 mg PO BID 07/07/19 11/05/19 release (Cymbalta) furosemide 40 mg tablet 40 mg PO DAILY 07/07/19 11/05/19 metoprolol tartrate 25 mg tablet 25 mg PO BID 07/07/19 11/05/19 [id number]-hka-XG 200 mcg-vit K 100 1 cap PO DAILY 07/07/19 11/05/19 mcg-lycop 500 [id number]-M81 capsule (Daily Multivitamin) pantoprazole 40 mg tablet,delayed 40 mg PO DAILY 11/05/19 11/05/19 release methylprednisolone 4 mg tablets in mg 01/29/22 01/29/22 a dose pack Allergies Allergy/AdvReac Type Severity Reaction Status Date / Time Sulfa (Sulfonamide Allergy Unknown RASH Verified 01/29/22 20:08 Antibiotics) [facility] Past Medical History Medical History (Updated 09/29/22 @ 18:05 by Tanja Porras MD) Anemia Arthritis Asthma Depression GERD (gastroesophageal reflux disease) Hx of migraines Ulcer Surgical History Surgical History History of cholecystectomy History of hysterectomy Hx of tubal ligation Family History Family History Father Diabetes mellitus Hypertension Heart disease Emphysema lung Smokeless tobacco use Glaucoma Cataract Heart failure Mother Diabetes mellitus Cerebrovascular accident Osteoporosis Sibling Diabetes mellitus Cerebrovascular accident Sibling Diabetes mellitus Heart disease Smokeless tobacco use Malignant neoplasm of prostate Sibling Diabetes mellitus Epilepsy Suicide Sibling Diabetes mellitus Heart disease Smokeless tobacco use Congestive heart failure Sibling Diabetes mellitus Cerebrovascular accident Sibling Heart disease Smokeless tobacco use Cirrhosis Alcohol abuse Sibling Epilepsy Tumor liver Sibling Cerebrovascular accident Heart disease Smokeless tobacco use Sibling Glaucoma Sibling Heart disease Smokeless tobacco use Crohn disease Sibling Brain tumor Sibling Heart disease Smokeless tobacco use Sibling Graves disease Social History Social History Smoking status: Never smoker Second hand tobacco smoke exposure: Yes (family) Gender identity (if verbalized by the patient): Female Course Vital Signs Vital signs: Vital Signs Temperature 36.5 C 09/29/22 14:14 Pulse Rate 123 H 09/29/22 14:14 Respiratory Rate 20 09/29/22 14:14 Pulse Oximetry 98 09/29/22 14:14 Oxygen Delivery Room Air 09/29/22 14:14 Temperature 36.5 C 09/29/22 17:30 Pulse Rate 85 09/29/22 18:15 Respiratory Rate 17 09/29/22 18:15 Blood Pressure 131/81 09/29/22 18:01 Pulse Oximetry 100 09/29/22 18:01 Oxygen Delivery Room Air 09/29/22 14:38 MDM - Nausea/Vomiting/Diarrhea MDM Narrative Medical decision making narrative: Medical decision making narrative: -Presentation: Patient presenting for evaluation of nausea, vomiting, likely dehydrated. Patient tachycardic at the time of assessment otherwise normotensive, afebrile. No significant abdominal pain on exam. -Co-morbidities complicating ca
--- NOTE | 2022-09-29 14:33 | ECG_ITS ---
Measurements Intervals [place] Rate: 88 P: 30 GA: 104 QRS: 15 QRSD: 82 T: 13 QT: 380 QTc: 461 Interpretive Statements SINUS RHYTHM WITH SHORT GA INTERVAL NONSPECIFIC ST & T-WAVE ABNORMALITY COMPARED TO ECG 11/05/2019 19:09:15 NO SIGNIFICANT CHANGES Electronically Signed On 09-29-2022 14:44:45 CDT by Brannon Rosales M.D.
[2022-09-29] MEDS: SODIUM CHLORIDE 0.9% IV 2,000 ML 999 ML IV CONT (14:59)
[2022-09-29 15:00] LABS: Basophils Percent Auto 0.4 % (0.2-1.2); Eosinophils Absolute Auto 0.2 K/mm3 (0-0.3); Eosinophils Percent Auto 2.4 % (0-4.4); Hematocrit 47.1 % (37.0-47.0); Hemoglobin 15.5 g/dL (12.0-15.0); Immature Granulocyte Absolute 0.06 K/mm3 (0.00-0.031); Immature Granulocyte Percent A 0.6 % (0-0.5); Lymphocytes Absolute Auto 2.62 K/mm3 (0.9-3.2); Mean Corpuscular HGB Conc 32.9 g/dl (32-36); Mean Corpuscular Hemoglobin 27.4 pg (26-34); Mean Corpuscular Volume 83.2 fl (80-100); Mean Platelet Volume 10.4 fl (7.4-10.4); Monocytes Absolute Auto 0.8 K/mm3 (0.1-0.6); Monocytes Percent Auto 7.8 % (2.6-8.5); Neutrophils Percent Auto 61.8 % (45.5-73.1); Platelet Count Result 364 k/mm3 (150-375); Red Blood Count 5.66 M/mm3 (4.2-5.4); Red Cell Distribution Width 15.3 % (11.5-14.5); White Blood Count 9.7 K/mm3 (4.5-10.0)
[2022-09-29] MEDS: ONDANSETRON INJ 4 MG/2 ML VIAL IV PUSH ×2 (15:00→18:06)
[2022-09-29 15:26] LABS: Appearance Urine Cloudy (Clear); Bacteria Urine 2+ /hpf; Bilirubin Urine Negative (Negative); Blood Urine Negative (Negative); Color Urine Yellow (Yellow); Glucose Urine UA Negative (Negative); Ketones Urine Negative (Negative); Leukocyte Esterase Ur 2+ LEU/UL (Negative); Need Manual Microscopic Reviewed; Nitrate Urine Negative (Negative); Protein Urine Negative (Negative); RBC Urine 0-2 /hpf (0-2); Specific Grav Ur 1.014 (1.001-1.035); Squamous Epithelial Cell Urine Many /hpf (Few); WBC Urine 21-50 /hpf; pH Urine 6.5 (5.0-9.0)
[2022-09-29 15:29] LABS: Add Urine Microscopic? YES
[2022-09-29 15:38] LABS: Alanine Aminotransferase 48 U/L (6-35); Albumin Level 4.7 g/dL (3.5-5.1); Alkaline Phosphatase 133 U/L (38-126); Anion Gap 12 mmol/L (8-16); Aspartate Amino Transferase 45 U/L (14-36); Bilirubin,Total 1.6 mg/dL (0.2-1.3); Blood Urea Nitrogen 14 mg/dL (7-17); Carbon Dioxide 36 mmol/L (22-30); Chloride 94 mmol/L (98-107); Estimated CRCL calculation 54 ml/min; Estimated Glomerular Filt Rate 57; Glucose 117 mg/dL (65-110); Lipase 283 U/L (23-300); Potassium 2.8 mmol/L (3.4-5.0); Sodium 142 mmol/L (137-145)
[2022-09-29 16:15] LABS: Phosphorus 1.2 mg/dL (2.5-4.5)
[2022-09-29 17:47] LABS: Anion Gap 4 mmol/L (8-16); Blood Urea Nitrogen 13 mg/dL (7-17); Calcium 8.4 mg/dL (8.4-10.2); Carbon Dioxide 36 mmol/L (22-30); Chloride 101 mmol/L (98-107); Estimated CRCL calculation 67 ml/min; Estimated Glomerular Filt Rate > 60; Glucose 91 mg/dL (65-110); Potassium 3.1 mmol/L (3.4-5.0); Sodium 141 mmol/L (137-145)
[2022-09-29] MEDS: POTASSIUM CHLORIDE 20 MEQ PACKET (FOR LIQUID) 40 MEQ PO (17:57)
[2022-09-29] MEDS: METOCLOPRAMIDE HCL INJ 10 MG/2 ML VIAL IV PUSH (18:06)
[2022-09-29] MEDS: POTASSIUM PHOS,M-BASIC-D-BASIC 20 MMOL in SODIUM CHLORIDE 0.9% IV 250 ML 64.17 MMOL IVPB (18:50)
--- NOTE | 2022-09-29 19:30 | PM.IMHP ---
H&P: HPI History of Present Illness Date/Time: 09/29/22 19:30 Chief Complaint: Nausea, vomiting, and dizziness Narrative: This is a very pleasant 57-year-old female with asthma, COPD, GERD with remote history of peptic ulcers, and kidney stones who presented to the emergency department via private vehicle from home for evaluation of nausea, vomiting, and dizziness. The patient provides the following history. She was treated with a short burst of prednisone last week for bronchitis and she feels better in that regard though she continues to have a mild but nonproductive cough. Since that time she has developed somewhat of a sore throat and she remarks that her tongue was painful and purple when she was taking the oral steroids. She is also on inhaled steroid but that is not a new drug for her. Over the last couple of days she has had pretty severe nausea and has not been able to eat or drink much though she has only had 1 episode of emesis. She is starting to feel weak and somewhat lightheaded and dizzy. She denies sick contacts and recent travel. She has not had fever, chills, or sweats. No vertigo, visual changes, or focal weakness. She has not had chest pain or pleuritic pain. She denies diarrhea and reports a normal bowel movement yesterday. With further questioning she was started on Saxenda about a month ago and she has lost 20 lb or so since that time. In the ED: She was afebrile on arrival with stable vital signs. Labs were significant for a WBC count of 9.7, hemoglobin 15.5, hematocrit 47.1%, sodium 142, potassium 2.8, chloride 94, BUN 14, creatinine 1.00, phosphorus 1.2, AST 1.6, ALT 45, ALT 48, lymphocytes 133, lipase 283. Abdominal ultrasound showed diffuse hepatic steatosis, gallbladder surgically absent. Her potassium was replaced in the ED and she was hydrated with 2 L a most saline. Unfortunately she continues to have pretty significant nausea despite receiving ondansetron and metoclopramide. She is being admitted in this setting for further treatment and evaluation. Review of Systems Review of Systems: Twelve systems were reviewed. No fever. She denies sinus congestion. Throat is a bit sore. No history of thrush. No orthopnea or lower extremity edema. She denies vomiting. No melena or hematochezia. No dysuria. Except as documented, all other systems were reviewed and are negative. FOR[facility]LY [facility] Past Medical History Medical History (Updated 09/29/22 @ 22:34 by Asiya Wang PA-C) Anemia Arthritis Asthma Asthma with COPD Depression Gastroesophageal reflux disease Hypertension Kidney stones Migraines Ulcer Surgical History Surgical History (Updated 09/29/22 @ 22:26 by Asiya Wang PA-C) History of cardiac catheterization History of cholecystectomy History of hysterectomy History of tubal ligation Family History Family History Father Diabetes mellitus Hypertension Heart disease Emphysema lung Smokeless tobacco use Glaucoma Cataract Heart failure Mother Diabetes mellitus Cerebrovascular accident Osteoporosis Sibling Diabetes mellitus Cerebrovascular accident Sibling Diabetes mellitus Heart disease Smokeless tobacco use Malignant neoplasm of prostate Sibling Diabetes mellitus Epilepsy Suicide Sibling Diabetes mellitus Heart disease Smokeless tobacco use Congestive heart failure Sibling Diabetes mellitus Cerebrovascular accident Sibling Heart disease Smokeless tobacco use Cirrhosis Alcohol abuse Sibling Epilepsy Tumor liver Sibling Cerebrovascular accident Heart disease Smokeless tobacco use Sibling Glaucoma Sibling Heart disease Smokeless tobacco use Crohn disease Sibling Brain tumor Sibling Heart disease Smokeless tobacco use Sibling Graves disease Social History Social History (Updated 09/29/22 @ 22:26 by Asiya Wang PA-C) Social History: Surrogate medical decision
--- NOTE | 2022-09-29 20:45 | ADMGEN ---
This patient, Zulema Arce, was admitted to 2 Medical Room 260-01. Patient/family oriented to hospital policies and general routines including ID bracelet, bed and alarms, visiting hours, pain management, procedures, bathroom and other care routines, personal items, smoking policy, room service/diet, and visiting hours. Information on how to activate the Rapid Response Team has been discussed. Patient/Family are encouraged to report perceived risks to care and to ask questions if they do not understand what they are told or what they should do.
[2022-09-29] MEDS: LACTATED RINGERS 1,000 ML 125 ML IV CONT (22:45)
[2022-09-29] MEDS: NYSTATIN 100,000 UNITS/ML SUSP 5 ML ORAL.SUSP PO (22:45)
[2022-09-29] MEDS: METOPROLOL TARTRATE 25 MG TABLET PO (23:25)
[2022-09-29] MEDS: DULoxetine HCL 60 MG CAPSULE.DR PO (23:25)
[2022-09-30] VITALS (11 sets, daily range): BP systolic 105–116; BP diastolic 51–69; PULSE 69–80; RESP 16–20; TEMP 36.2–36.6; O2SAT 93–100
[2022-09-30 05:32] LABS: Hematocrit 37.8 % (37.0-47.0); Hemoglobin 12.5 g/dL (12.0-15.0); Mean Corpuscular HGB Conc 33.1 g/dl (32-36); Mean Corpuscular Hemoglobin 28.3 pg (26-34); Mean Corpuscular Volume 85.7 fl (80-100); Mean Platelet Volume 10.6 fl (7.4-10.4); Platelet Count Result 255 k/mm3 (150-375); Red Blood Count 4.41 M/mm3 (4.2-5.4); Red Cell Distribution Width 15.6 % (11.5-14.5); White Blood Count 6.6 K/mm3 (4.5-10.0)
[2022-09-30 05:41] LABS: Alanine Aminotransferase 32 U/L (6-35); Albumin Level 3.3 g/dL (3.5-5.1); Alkaline Phosphatase 84 U/L (38-126); Anion Gap 2 mmol/L (8-16); Aspartate Amino Transferase 23 U/L (14-36); Blood Urea Nitrogen 13 mg/dL (7-17); Calcium 8.6 mg/dL (8.4-10.2); Carbon Dioxide 34 mmol/L (22-30); Chloride 105 mmol/L (98-107); Estimated CRCL calculation 71 ml/min; Estimated Glomerular Filt Rate > 60; Glucose 91 mg/dL (65-110); Lipase 223 U/L (23-300); Phosphorus 2.9 mg/dL (2.5-4.5); Sodium 141 mmol/L (137-145)
[2022-09-30] MEDS: LACTATED RINGERS 1,000 ML 125 ML IV CONT (06:04)
[2022-09-30 06:12] LABS: Hepatitis B Surface Antigen Negative (Negative)
[2022-09-30 06:13] LABS: Thyroid Stimulating Hormone Reflex 0.914 uIU/mL (0.465-4.68)
[2022-09-30 06:18] LABS: HAV RESULT Negative (Negative); Hepatitis B Core IgM Result Negative (Negative)
[2022-09-30 06:29] LABS: Hepatitis C Virus Antibody Negative (Negative)
[2022-09-30] MEDS: ENOXAPARIN 40 MG/0.4 ML SYRINGE SUB-Q (08:01)
[2022-09-30] MEDS: ASPIRIN 81 MG ENTERIC TABLET PO (08:01)
[2022-09-30] MEDS: POTASSIUM CHLORIDE 20 MEQ PACKET (FOR LIQUID) 60 MEQ PO (08:01)
[2022-09-30] MEDS: DULoxetine HCL 60 MG CAPSULE.DR PO ×2 (08:01→16:42)
[2022-09-30] MEDS: NYSTATIN 100,000 UNITS/ML SUSP 5 ML ORAL.SUSP PO ×4 (08:02→20:37)
[2022-09-30] MEDS: THERAPEUTIC MULTIVITAMINS/MINERALS TAB (*BKC) 1 TABLET PO (08:02)
[2022-09-30] MEDS: PANTOPRAZOLE 40 MG TABLET PO (08:02)
[2022-09-30] MEDS: VENLAFAXINE HCL XR 75 MG CAP.ER.24H 150 MG PO (08:02)
[2022-09-30] MEDS: METOPROLOL TARTRATE 25 MG TABLET PO ×2 (08:03→16:42)
--- NOTE | 2022-09-30 12:49 | PCCCNOTE ---
On 09/30/22, the student, [Linda Teague], provided care and completed [facility] documentation on this patient. I have reviewed the student's documentation and agree with the findings.
--- NOTE | 2022-09-30 13:12 | PM.IMPN ---
Progress Note: A&P Assessment and Plan (1) Nausea & vomiting: Code(s): R11.2 - Nausea with vomiting, unspecified Status: Acute Assessment and Plan: Etiology is not entirely clear but her abdominal exam is pretty benign. Differential diagnosis includes viral gastroenteritis, side effect of Saxenda, and possible esophageal candidiasis. She has a remote history of peptic ulcers but has no other symptoms to suggest such. Continue supportive care with IV fluid rehydration, clear liquids, antiemetics as needed, and nystatin swish and swallow. Zofran p.r.n. IV fluids discontinued Abdominal ultrasound revealing diffuse hepatic steatosis. Patient continued to have nausea. Will order CT chest abdomen pelvis. (2) Thrush: Code(s): B37.0 - Candidal stomatitis Status: Acute Assessment and Plan: Nystatin swish and swallow q.i.d.. (3) Dehydration: Code(s): E86.0 - Dehydration Status: Acute Assessment and Plan: She looks quite dry on exam and on labs and is being hydrated overnight. (4) Hypokalemia: Code(s): E87.6 - Hypokalemia Status: Acute Assessment and Plan: She has been on furosemide for many years but has never been on potassium supplementation. This may be contributing to the hypokalemia. Potassium will be replaced and monitored. (5) Hypophosphatemia: Code(s): E83.39 - Other disorders of phosphorus metabolism Status: Resolved Assessment and Plan: Phosphate will be replaced and monitored as well. (6) Elevated LFTs: Code(s): R79.89 - Other specified abnormal findings of blood chemistry Status: Resolved Assessment and Plan: LFTs are mildly elevated 09/29. Her abdominal exam is benign right upper quadrant ultrasound shows diffuse hepatic steatosis. Hepatitis panel negative. LFTs within normal range 09/30 (7) Gastroesophageal reflux disease: Code(s): K21.9 - Gastro-esophageal reflux disease without esophagitis Status: Acute Assessment and Plan: Continue PPI. (8) Asthma with COPD: Code(s): J44.9 - Chronic obstructive pulmonary disease, unspecified Status: Acute Assessment and Plan: No evidence of acute exacerbation. Discussed the importance of rinsing mouth after using inhaled steroid. (9) Hypertension: Code(s): I10 - Essential (primary) hypertension Status: Acute Assessment and Plan: Blood pressures were reviewed and they are stable. Hold Lasix for now given electrolyte abnormalities. Subjective Date/time seen: 09/30/22 13:12 Interval history: Patient the resting in bed comfortably. Patient states that she still has some nausea that comes and goes. Patient denies hitting on diarrhea, body aches and chills. Patient has had vomiting before hospital admission but not since. She is on furosemide to this likely causing her hypokalemia and she takes furosemide p.r.n. for edema. Review of Systems Review of Systems: All systems reviewed & are unremarkable except as noted in HPI and below Exam Narrative: GENERAL: Comfortable, no acute distress HENMT: moist mucous membranes EYES: EOM intact b/l NECK: no lymphadenopathy RESPIRATORY: clear to auscultation CARDIO: RRR GI: soft, nontender, bowel sounds present SKIN: no rashes EXTREMITIES: no edema, redness or tenderness Objective Data Vital Signs Vital Signs: Vital Signs - 24 hr 09/29/22 14:14 09/29/22 14:38 09/29/22 14:24 Temperature 97.7 F 97.3 F L Pulse Rate 123 H 96 112 H Respiratory Rate 20 16 22 H Blood Pressure 139/81 Pulse Oximetry 98 98 Oxygen Delivery Room Air Room Air 09/29/22 14:31 09/29/22 14:40 09/29/22 14:45 Temperature Pulse Rate 108 H 89 92 Respiratory Rate 21 H 15 16 Blood Pressure 139/81 135/82 Pulse Oximetry Oxygen D
[2022-09-30 14:43] LABS: Potassium 3.6 mmol/L (3.4-5.0)
[2022-10-01] VITALS (8 sets, daily range): BP systolic 94–117; BP diastolic 50–65; PULSE 64–80; RESP 13; TEMP 36.1; O2SAT 96–97
[2022-10-01 05:23] LABS: Hematocrit 39.2 % (37.0-47.0); Hemoglobin 12.4 g/dL (12.0-15.0); Mean Corpuscular HGB Conc 31.6 g/dl (32-36); Mean Corpuscular Hemoglobin 27.6 pg (26-34); Mean Corpuscular Volume 87.1 fl (80-100); Mean Platelet Volume 10.8 fl (7.4-10.4); Platelet Count Result 248 k/mm3 (150-375); Red Cell Distribution Width 15.5 % (11.5-14.5); White Blood Count 7.8 K/mm3 (4.5-10.0)
[2022-10-01 05:39] LABS: Alanine Aminotransferase 28 U/L (6-35); Albumin Level 3.4 g/dL (3.5-5.1); Alkaline Phosphatase 80 U/L (38-126); Anion Gap 2 mmol/L (8-16); Aspartate Amino Transferase 21 U/L (14-36); Bilirubin,Total 0.7 mg/dL (0.2-1.3); Blood Urea Nitrogen 9 mg/dL (7-17); CRP 1.4 mg/dL (<1.0); Calcium 8.6 mg/dL (8.4-10.2); Carbon Dioxide 32 mmol/L (22-30); Chloride 106 mmol/L (98-107); Estimated CRCL calculation 71 ml/min; Estimated Glomerular Filt Rate > 60; Glucose 91 mg/dL (65-110); Potassium 3.4 mmol/L (3.4-5.0); Sodium 140 mmol/L (137-145)
[2022-10-01] MEDS: ASPIRIN 81 MG ENTERIC TABLET PO (09:07)
[2022-10-01] MEDS: ENOXAPARIN 40 MG/0.4 ML SYRINGE SUB-Q (09:07)
[2022-10-01] MEDS: DULoxetine HCL 60 MG CAPSULE.DR PO (09:07)
[2022-10-01] MEDS: METOPROLOL TARTRATE 25 MG TABLET PO (09:08)
[2022-10-01] MEDS: PANTOPRAZOLE 40 MG TABLET PO (09:08)
[2022-10-01] MEDS: THERAPEUTIC MULTIVITAMINS/MINERALS TAB (*BKC) 1 TABLET PO (09:08)
[2022-10-01] MEDS: NYSTATIN 100,000 UNITS/ML SUSP 5 ML ORAL.SUSP PO ×2 (09:08→13:23)
[2022-10-01] MEDS: VENLAFAXINE HCL XR 75 MG CAP.ER.24H 150 MG PO (09:08)
--- NOTE | 2022-10-01 12:37 | PM.DS ---
DS: Admitting Diagnosis Discharge Date 10/01/22 Admitting Diagnosis Nausea, vomiting, dizziness DS: Discharge Diagnosis Discharge Diagnosis (1) Nausea & vomiting: Code(s): R11.2 - Nausea with vomiting, unspecified Status: Chronic Assessment and Plan: Etiology is not entirely clear but her abdominal exam is pretty benign. Differential diagnosis includes viral gastroenteritis, side effect of Saxenda, and possible esophageal candidiasis. She has a remote history of peptic ulcers but has no other symptoms to suggest such. Continue supportive care with IV fluid rehydration, clear liquids, antiemetics as needed, and nystatin swish and swallow. Zofran p.r.n. IV fluids discontinued Abdominal ultrasound revealing diffuse hepatic steatosis. CT chest abdomen pelvis negative for acute processes (2) Thrush: Code(s): B37.0 - Candidal stomatitis Status: Acute Assessment and Plan: Nystatin swish and swallow q.i.d.. (3) Dehydration: Code(s): E86.0 - Dehydration Status: Resolved Assessment and Plan: patient received IV fluids and they were discontinued on 09/10/2022. (4) Hypokalemia: Code(s): E87.6 - Hypokalemia Status: Resolved Assessment and Plan: She has been on furosemide for many years but has never been on potassium supplementation. This may be contributing to the hypokalemia. Potassium will be replaced and monitored. (5) Hypophosphatemia: Code(s): E83.39 - Other disorders of phosphorus metabolism Status: Resolved Assessment and Plan: Phosphate will be replaced and monitored as well. (6) Elevated LFTs: Code(s): R79.89 - Other specified abnormal findings of blood chemistry Status: Resolved Assessment and Plan: LFTs are mildly elevated 09/29. Her abdominal exam is benign right upper quadrant ultrasound shows diffuse hepatic steatosis. Hepatitis panel negative. LFTs within normal range 09/30 (7) Gastroesophageal reflux disease: Code(s): K21.9 - Gastro-esophageal reflux disease without esophagitis Status: Chronic Assessment and Plan: Continue PPI. (8) Asthma with COPD: Code(s): J44.9 - Chronic obstructive pulmonary disease, unspecified Status: Chronic Assessment and Plan: No evidence of acute exacerbation. Discussed the importance of rinsing mouth after using inhaled steroid. (9) Hypertension: Code(s): I10 - Essential (primary) hypertension Status: Chronic Assessment and Plan: Blood pressures were reviewed and they are stable. Hold Lasix for now given electrolyte abnormalities. DS: Summary Hospital Course Hospital Course: This is a 57-year-old female with a past medical history of asthma, COPD and GERD that presented to the ED on 09/29/2022 with chief complaint nausea, vomiting and dizziness. Patient had recently been on prednisone due to bronchitis but continues to have a mild nonproductive cough. She had developed a sore throat and painful tongue while she had been taken oral steroids. She has had a decreased appetite and has been unable to drink much water. Prior to ED arrival she had had 1 episode of emesis. Labs were significant for a WBC count of 9.7, hemoglobin 15.5, hematocrit 47.1%, sodium 142, potassium 2.8, chloride 94, BUN 14, creatinine 1.00, phosphorus 1.2, AST 1.6, ALT 45, ALT 48, lymphocytes 133, lipase 283. Abdominal ultrasound showed diffuse hepatic steatosis, gallbladder surgically absent. CT chest abdomen pelvis negative for acute causes of patient's symptoms. Her potassium was replaced she was started on the IV fluids. Patient was started on nystatin swish and swallow q.i.d. for possible esophageal candidiasis. With IV fluids and potassium replacement patient's nausea resolved. The day of discharge patient is f
--- NOTE | 2022-10-01 15:25 | PCCCNOTE ---
On 10/01/22, the student, [Linda Teague], provided care and completed [facility] documentation on this patient. I have reviewed the student's documentation and agree with the findings.
== END 2022-10-01 13:28 | disposition home or self-care (01) ==
LOC: ANHED 18:05 → ANH2MED 20:40
PROVIDERS: Internal Medicine Critical Care Medicine; Physician Assistant; Admitting Provider Family Medicine; Emergency Provider Emergency Medicine; PCP Family Medicine; Visit Provider Internal Medicine
DX: R11.2 Nausea with vomiting, unspecified (principal); B37.0 Candidal stomatitis; E86.0 Dehydration; E87.6 Hypokalemia; E83.39 Other disorders of phosphorus metabolism; R79.89 Other specified abnormal findings of blood chemistry; K76.0 Fatty (change of) liver, not elsewhere classified; I10 Essential (primary) hypertension; K21.9 Gastro-esophageal reflux disease without esophagitis; D64.9 Anemia, unspecified; M19.90 Unspecified osteoarthritis, unspecified site; G43.909 Migraine, unspecified, not intractable, without status migrainosus; J45.909 Unspecified asthma, uncomplicated; J44.9 Chronic obstructive pulmonary disease, unspecified; R94.31 Abnormal electrocardiogram [ECG] [EKG]; R74.01 Elevation of levels of liver transaminase levels; I45.6 Pre-excitation syndrome; Z87.11 Personal history of peptic ulcer disease; Z87.442 Personal history of urinary calculi; Z79.51 Long term (current) use of inhaled steroids; Z79.82 Long term (current) use of aspirin; Z79.85 Long-term (current) use of injectable non-insulin antidiabetic drugs; Z79.899 Other long term (current) drug therapy; Z82.49 Family history of ischemic heart disease and other diseases of the circulatory system; Z83.3 Family history of diabetes mellitus
CPT/HCPCS: 36415; 71250; 74176; 76705; 80048; 80053; 80074; 81001; 83605; 83690; 83735; 84100; 84132; 84443; 85025; 85027; 86140; 87086; 93005; 94640; 96361; 96365; 96366; 96372; 96375; 96376; 99285; A9270; G0378; J0696; J1650; J2405; J2765; J7030; J7050; J7120

== ENCOUNTER 2024-12-31 00:35 | Emergency (ER) | payer OTHER, SELFPAY ==
--- NOTE | ~2024-12-31 | XR_ITS ---
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 No significant degenerative disease is noted. The base of the fifth metatarsal is intact. Moderate calcaneal spur is noted. Trace forefoot soft tissue swelling is present. IMPRESSION: Trace soft tissue swelling with degenerative disease, without acute fracture. Reviewed, dictated and finalized at location A. IMPRESSION: Trace soft tissue swelling with degenerative disease, without acut e fracture.
--- OUTSIDE RECORDS SUMMARY | 2024-12-31 00:36 | XMS_ITS | Clinical Summary ---
Author Organization [facility] Address [address] [place] [id number] Care Team Providers Care Head Of Ict Name Role Phone Unavailable Primary Care Provider Unavailabl e Social History Tobacco Use Types Packs/Day Years Used Date Smoking Tobacco: Never Comments Unknown Sex and Gender Information Value Date Recorded Sex Assigned at Not on file Legal Sex Female 11:01 PM CDT Gender Identity Not on file Sexual Orientation Not on file Last Filed Vital Signs Vital Sign Reading Time Taken Comments Blood Pressure 130/78 01/23/2014 12:06 PM CDT Pulse 75 09/07/2011 1:10 PM CDT Temperature - - Respiratory Rate 16 09/07/2011 1:10 PM CDT Oxygen Saturation - - Inhaled Oxygen Concentration - - Weight 90.7 kg (200 lb) 01/23/2014 12:06 PM CDT Height 157.5 cm (5' 2) 01/23/2014 12:06 PM CDT Body Mass Index 36.58 01/23/2014 12:06 PM CDT Plan of Treatment Health Maintenance Due Date Last Done Comments Cervical Cancer Screening Pa p Smear (Age 30 to 64) Every 3 Years 1966 Colorectal Cancer Screening Colonoscopy (10 Years) 1966 Annual Physical 1969 Hepatitis C 01/07/1984 DTaP, Tdap and Td Vaccines ( 1 - Tdap) 1985 Hepatitis B Vaccines (1 of 3 - 19+ 3-dose series) 1985 Cervical Cancer Screening Pa p with HPV Testing (Age 30 to 64) Every 5 Years 01/07/1996 Cervical Cancer Screening with HPV 01/07/1996 Mammogram Screening 2006 Pneumococcal Vaccine: 50+ Ye ars (1 of 1 - PCV) 01/07/2016 Zoster Vaccines (1 of 2) 01/07/2016 COVID-19 Vaccine (2023-2 5 season) 2024 Meningococcal B Vaccine Aged Out No l onger eligible based on patient's age to complete this topic Meningococcal Vaccine Aged Out No krystal fernando eligible based on patient's age to complete this topic RSV Immunizations Under 20 Months Aged Out No longer eligible based on patient's age to complete this topic
--- OUTSIDE RECORDS SUMMARY | 2024-12-31 00:36 | XMS_ITS | Clinical Summary ---
Author Organization [facility] Address [address] [place] [address] Care Team Providers Care Conservation Of Resources Commissioner Name Role Phone Amber Gray MD Primary Care Provide r Allergies Active Allergy Reactions Criticality Noted Date Comments Sulfa (Sulfonamide Antibiotics) Hives Medium 08/[address] (CYMBALTA) 60 mg capsule 05/20/2019 Active furosemide (LASIX) 40 mg tablet 05/20/2019 Active metoprolol (LOPRESSOR) 25 mg tablet 05/20/[address] (PROTONIX) 40 mg EC tablet 06/20/2019 Active aspirin 81 mg enteric coated tablet Take 81 mg by mouth daily Active montelukast (SINGULAIR) 10 mg tablet Take 10 mg by mouth nightly Active Active Problems Problem Noted Date Diagnosed Date Major depressive disorder, recurrent episode, mo derate 11/06/2019 Assessment & Plan (11/06/2019 4:58 AM CDT): Zulema Arce is a 54 y.o. year old female with psychiatric history of MDD who was brought to the hospital following a conversion reaction after an argument with family. Patient reports 3 years course of low mood, low energy, anhedonia, poor attention, increased sleep. No symptoms of lily or psychosis. This is most concerning for major depressive episode as part of MDD that has not responded to Cymbalta. Risk assessment Risk factors: depressed mood, poor coping, hopelessness, Protective factors: no history of SA, denies SI, social support, domiciled, employed, no substance use, access to medical services. Patient is at baseline low risk of harm. Recommendations - Refer patient to Counseling (see discharge instructions). I have discussed this with patient and she is agreeable. Gastroesophageal reflux disease with esophagitis 07/19/2019 Overview (07/19/2019): Added automatically from request for surgery [id number] Encounters Date Type Department Care Team Description 12/28/2024 1:20 PM CDT Ancillary Procedure [facility] Medical [facility] Cardiology at [address] [place] [address] Palpitation; ECG abnormal 12/15/2024 9:45 AM CDT Ancillary Procedure [facility] Cardiology [address] [facility] [address] [place] [phone] Palpitation; ECG abnormal from Last 3 Months Social History Tobacco Use Types Packs/Day Years Used Date Smoking Tobacco: Never Smokeless Tobacco: Never Comments Unknown Sex and Gender Information Value Date Recorded Sex Assigned at Not on file Legal Sex Female 2:50 PM MORTGAGE LOAN REVIEWER Gender Identity Not on file Sexual Orientation Not on file Obstetrics History Last Filed Vital Signs Vital Sign Reading Time Taken Comments Blood Pressure 145/87 05/15/2022 9:08 AM MORTGAGE LOAN REVIEWER Pulse 86 05/15/2022 9:08 AM MORTGAGE LOAN REVIEWER Temperature 36.7 C (98 F) 11/05/2019 11:43 PM CDT Respiratory Rate 16 05/15/2022 9:08 AM MORTGAGE LOAN REVIEWER Oxygen Saturation 100% 05/15/2022 9:08 AM MORTGAGE LOAN REVIEWER Inhaled Oxygen Concentration - - Weight 96.2 kg (212 lb) 05/15/2022 9:08 AM MORTGAGE LOAN REVIEWER Height 157.5 cm (5' 2) 05/15/2022 9:08 AM MORTGAGE LOAN REVIEWER Body Mass Index 38.78 05/15/2022 9:08 AM MORTGAGE LOAN REVIEWER Plan of Treatment Health Maintenance Due Date Last Done Comments Cervical Cancer Screening 1965 Colon Cancer Screening-Colonoscopy 1966 Depression Screening 1966 Hepatitis C Screening 1966 DTaP/Tdap/Td Vaccine (1 - Tdap) 1977 Hepatitis B Screening 01/07/1984 Regular Well Visit/Exam 18-64 01/07/1984 Pneumococcal vaccine <65 (1 of 2 - PCV) 1985 Breast Cancer Screening-Mammogram 12/02/2017 12/02/2016, 01/03/2016, 12/12/2015 Zoster Vaccine (2 of 2) 03/11/2018 01/14/2018 Influenza Vaccine (#1) 2025 4, 03/26/2023, 03/17/2017 Procedures Procedure Name Priority Date/Time Associated Diagnosis Comments STRESS TEST ONLY TREADMILL Routine 12/28/2024 4:02 PM CDT Palpitation ECG abnormal MAMMOGRAPHY, TOMOGRAPHY, BILATERAL Routine 12/02/2016 8:59 PM CDT from Last 3 Months or Most Recently Relevant to Health Maintenance Results * Stress Treadmill Test (12/28/2024 4:02 PM CDT) Anatomical Region Laterality Modality Electrocardiogra phy Narrative 12/28/2024 4:02 PM CDT TREADMILL STRESS TEST Patient Name: Zulema Arce Date of : 1965 Primary Physician: Dr. Gray Requesting Physician: Dr. Gray Type of stress test: Treadmill stress test Indication: Palpitations, abnormal EKG Quality of the study: Good Interpretation: Baseline 12 lead EKG showed normal sinus rhythm, low voltage across precordial leads. Nonspecific T-wave abnormality. Abnormal EKG. After obtaining baseline 12 lead EKG and blood pressure, patient exercised on treadmill using standard Isaias protocol for 4 minutes, achieving a cardiac workload of 6.5 METS. Patient stopped exercise due to shortness of breath, hypertension. Baseline blood pressure 134/75 mmHg, baseline heart rate 70 beats per minute, maximum blood pressure 238/102 mmHg, maximal heart rate 161 beats per minute which is 99 percent of maximum age predicted heart rate. Stress EKG: Nondiagnostic upsloping inferolateral ST segment depressions which do not meet strict criteria for ischemia Arrhythmias: Occasional symptomatic premature ventricular contractions seen in recovery Blood pressure response to exercise: Hypertensive Heart rate recovery: Normal Conclusions: Treadmill stress test is negative for ischemia by EKG criteria at 99% of maximum age predicted heart rate with nondiagnostic upsloping inferolateral ST segment depressions which do not meet strict criteria for ischemia. Below average exercise capacity for patient's age. No exercise-induced chest pain Symptomatic PVCs are seen in recovery Voice recognition software was used to complete this document. Renard Clinton MD, [facility] Amber Gray MD CV STRESS PROCEDURES Final Result * MAMMOGRAPHY, TOMOGRAPHY, BILATERAL (12/02/2016 8:59 PM CDT) Anatomical Region Laterality Modality Breast Bilateral Mammography 12/02/2016 8:59 PM CDT Narrative 12/02/2016 8:59 PM CDT Acc#: [id number] [facility] [id number] - Screening Mamm W Dimitri Bi DATE OF EXAM: Dec 02 2016 3:59PM DIAGNOSIS: ENCNTR SCREEN MAMMOGRAM FOR MALIGNANT NE CLINICAL HISTORY: SCREENING RESULT: EXAMINATION: Bilateral screening mammogram with tomosynthesis HISTORY: Routine screening. COMPARISON: 12/12/2015 and 02/27/2011 TECHNIQUE: Full view digital CC and MLO views of the breasts were obtained using 2-D and 3-D technique with tomosynthesis. Images were subjected to R2/CAD analysis. FINDINGS: The breasts are heterogeneously dense, which may obscure small masses. No evidence of a suspicious mass lesion, clustered microcalcifications, architectural distortion or skin thickening. The parenchymal pattern is unchanged from previous. IMPRESSION: 1. BI-RADS Category 1, negative. 2. Annual bilateral screening mammography is recommended. Electronically signed by: Adrienne Curran M.D. TECHNOLOGIST: SHUBHAM WAN, TECHNOLOGIST MEDICAL IMAGING STEM CLEANING MACHINE FEEDER: [facility] TRANSCRIBE DATE/TIME: Dec 02 2016 4:13P RADIOLOGIST: ADRIENNE CURRAN M.D. READ ON: Dec 02 2016 4:17P ORDERING DR: AMBER GRAY M.D. THIS DOCUMENT HAS BEEN ELECTRONICALLY SIGNED BY: ADRIENNE CURRAN M.D. ON: Dec 02 2016 4:13P Attending: AMBER GRAY Requesting: AMBER GRAY Requesting Attending Attending ID: [id number] Requesting ID: [id number] Report To 1 ID: Report To 1 Name: , Report To 1 FAX: -- Report To 2 ID: Report To 2 Name: , Report To 2 FAX: -- NextGen Order #: Procedure Note Miscellaneous, Not In File / Provider, MD Leela - 12/02/2016 Acc#: [id number] [facility] 0034 - Screening Mamm W Dimitri Bi DATE OF EXAM: Dec 02 2016 3:59PM DIAGNOSIS: ENCNTR SCREEN MAMMOGRAM FOR MALIGNANT NE CLINICAL HISTORY: SCREENING RESULT: EXAMINATION: Bilateral screening mammogram with tomosynthesis HISTORY: Routine screening. COMPARISON: 12/12/2015 and 02/27/2011 TECHNIQUE: Full view digital CC and MLO views of the breasts were obtained using 2-D and 3-D technique with tomosynthesis. Images were subjected to R2/CAD analysis. FINDINGS: The breasts are heterogeneously dense, which may obscure small masses. No evidence of a suspicious mass lesion, clustered microcalcifications, architectural distortion or skin thickening. The parenchymal pattern is unchanged from previous. IMPRESSION: 1. BI-RADS Category 1, negative. 2. Annual bilateral screening mammography is recommended. Electronically signed by: Adrienne Curran M.D. TECHNOLOGIST: SHUBHAM WAN TECHNOLOGIST MEDICAL IMAGING STEM CLEANING MACHINE FEEDER: [employer] TRANSCRIBE DATE/TIME: Dec 02 2016 4:13P RADIOLOGIST: ADRIENNE CURRAN M.D. READ ON: Dec 02 2016 4:17P ORDERING DR: AMBER GRAY M.D. THIS DOCUMENT HAS BEEN ELECTRONICALLY SIGNED BY: ADRIENNE CURRAN M.D. ON: Dec 02 2016 4:13P Attending: AMBER GRAY Requesting: AMBER GRAY Requesting Attending Attending ID: [id number] Requesting ID: [id number] Report To 1 ID: Report To 1 Name: , Report To 1 FAX: -- Report To 2 ID: Report To 2 Name: , Report To 2 FAX: -- NextGen Order #: us Not In File Miscellaneous IMG MAMMO PROCEDURES F inal Result from Last 3 Months or Most Recently Relevant to Health Maintenance Insurance [employer] [facility] [employer] Address: [facility] [address] [place] [address] [facility] Address: [address] [place] [address] [place] [address] [employer] [facility] [employer] Address: [facility] [id number] [place] [address] [employer] [place] PPO Advance Directives For more information, please contact: [phone] * Full Code (Latest Code Status on File) Date Activated Date Inactivated Comments 08/22/2019 10:57 AM 08/22/2019 4:15 PM * Full Code Date Activated Date Inactivated Comments 08/22/2019 10:57 AM 08/22/2019 10:57 AM Care Teams Conservation Of Resources Commissioner Relationship Specialty Start Date End Date Amber Gray MD [address] [place] [address] PCP - General 12/02/16
--- OUTSIDE RECORDS SUMMARY | 2024-12-31 00:36 | XMS_ITS | Referral Summary ---
Author Organization [facility] Address [address] [place] [phone] Care Team Providers Care Bundle Breaker Name Role Phone Amber Gray MD Primary Care Provide r Encounters Date Type Department Care Team Description 12/28/2024 1:20 PM CDT Ancillary Procedure [facility] Medical Group Cardiology at [address] [place] [address] Palpitation; ECG abnormal 12/15/2024 9:45 AM CDT Ancillary Procedure [facility] Medical Group Cardiology [address] [facility] [address] [place] [address] Palpitation; ECG abnormal from Last 3 Months Allergies Active Allergy Reactions Criticality Noted Date [...] & Plan (11/06/2019 4:58 AM CDT): Zulema Vilma Arce is a 54 y.o. year old [...] (07/19/2019): Added automatically from request for surgery [id number] Social History Tobacco Use Types Packs/Day Years Used Date Smoking Tobacco: Never Smokeless Tobacco: Never Comments Unknown Sex and Gender Information Value Date Recorded Sex Assigned at Not on file Legal Sex Female 2:50 PM SUPPORT CLERK Gender Identity Not on file Sexual Orientation Not on file Last Filed Vital Signs Vital Sign Reading Time Taken Comments Blood Pressure 145/87 05/15/2022 9:08 AM SUPPORT CLERK Pulse 86 05/15/2022 9:08 AM SUPPORT CLERK Temperature 36.7 C (98 F) 11/05/2019 11:43 PM CDT Respiratory Rate 16 05/15/2022 9:08 AM SUPPORT CLERK Oxygen Saturation 100% 05/15/2022 9:08 AM SUPPORT CLERK Inhaled Oxygen Concentration - - Weight 96.2 kg (212 lb) 05/15/2022 9:08 AM SUPPORT CLERK Height 157.5 cm (5' 2) 05/15/2022 9:08 AM SUPPORT CLERK Body Mass Index 38.78 05/15/2022 9:08 AM SUPPORT CLERK Plan of Treatment Not on file Procedures Procedure Name Priority Date/Time Associated Diagnosis [...] to complete this document. Renard Clinton MD, [facility] Amber Gray MD CV STRESS PROCEDURES Final Result * MAMMOGRAPHY, TOMOGRAPHY, BILATERAL (12/02/2016 8:59 PM CDT) Anatomical Region Laterality Modality Breast Bilateral Mammography 12/02/2016 8:59 PM CDT Narrative 12/02/2016 8:59 PM CDT Acc#: [id number] M 0034 - Screening Mamm W Dimitri Bi [...] M.D. TECHNOLOGIST: SHUBHAM WAN TECHNOLOGIST MEDICAL IMAGING PAROLE BOARD MEMBER: [employer] TRANSCRIBE DATE/TIME: Dec 02 2016 4:13P RADIOLOGIST: ADRIENNE CURRAN M.D. READ ON: Dec 02 2016 4:17P ORDERING DR: AMBER GRAY M.D. THIS DOCUMENT HAS BEEN ELECTRONICALLY SIGNED BY: ADRIENNE CURRAN M.D. ON: Dec 02 2016 4:13P Attending: AMBER GRAY Requesting: AMBER GRAY Requesting Attending Attending ID: [id number] Requesting ID: [id number] Report To 1 ID: Report To 1 Name: , Report To 1 FAX: -- Report To 2 ID: Report To 2 Name: , Report To 2 FAX: -- NextGen Order #: Procedure Note Miscellaneous, Not In File / Provider, MD Leela - 12/02/2016 Acc#: [id number] [facility] [id number] - Screening Mamm W Dimitri [...] M.D. TECHNOLOGIST: SHUBHAM WAN, TECHNOLOGIST MEDICAL IMAGING PAROLE BOARD MEMBER: [facility] TRANSCRIBE DATE/TIME: Dec 02 2016 4:13P RADIOLOGIST: ADRIENNE CURRAN M.D. READ ON: Dec 02 2016 4:17P ORDERING DR: AMBER GRAY M.D. THIS DOCUMENT HAS BEEN ELECTRONICALLY SIGNED BY: ADRIENNE CURRAN M.D. ON: Dec 02 2016 4:13P Attending: AMBER GRAY Requesting: AMBER GRAY Requesting Attending Attending ID: [id number] Requesting ID: [id number] Report To 1 ID: Report To 1 Name: , Report To 1 FAX: -- Report To 2 ID: Report To 2 Name: , Report To 2 FAX: -- NextGen Order #: us Not In File Miscellaneous IMG MAMMO PROCEDURES F inal Result from Last 3 Months or Most Recently Relevant to Health Maintenance Insurance [employer] [facility] [employer] HE[employer] PLANS Address: [facility] [address] [place] [address] [facility] CHOICE PLUS [employer] [facility]EE HEALTH PLANS Address: [address] [place] [address] [employer] [facility] [employer] HE[employer] PLANS Address: [address] [place] [address] [employer] [place] PPO Advance Directives For more information, please contact: [phone] * Full Code (Latest Code Status on File) Date Activated Date Inactivated Comments 08/22/2019 10:57 AM 08/22/2019 4:15 PM * Full Code Date Activated Date Inactivated Comments 08/22/2019 10:57 AM 08/22/2019 10:57 AM Care Teams Bundle Breaker Relationship Specialty Start Date End Date Amber Gray MD [address] [place] [address] PCP - General 12/02/16
--- OUTSIDE RECORDS SUMMARY | 2024-12-31 00:36 | XMS_ITS | Encounter Summary ---
Author Organization [facility] Address [address] [place] [address] Care Team Providers Care Leaf Fat Scraper Name Role Phone Unavailable Primary Care Provider Unavailabl e Encounter Details Date Type Department Care Team (Late st Contact Info) Description 11/12/2018 Abstract SFL CONVERSION [address] [place] [address] , Generic Conversion, Social History Tobacco Use Types Packs/Day Years Used Date Smoking Tobacco: Never Comments Unknown Sex and Gender Information Value Date Recorded Sex Assigned at Not on file Legal Sex Female 11:01 PM CDT Gender Identity Not on file Sexual Orientation Not on file documented as of this encounter Plan of Treatment Not on file documented as of this encounter Visit Diagnoses Not on filedocumented in this encounter
--- OUTSIDE RECORDS SUMMARY | 2024-12-31 00:36 | XMS_ITS | Continuity of Care Document ---
Author [facility] Address [address] [place] [address] [address] [place] [address] Phone Care Team Providers Care Senior Electrical Controls Engineer Name Role Phone Jose Vasquez Unavailable Unavailable Advance Directives Directive Yes / No Effective Date File Name No Information Encounters Encounter Description Practice Location Reason(s) For Visit Diagnoses Date Provider Providers Copied on Encounter [facility], [id number] [place] [address] [address], [place], [place], [id number], [place] tel:[phone] [facility] [place] No Information [address] [place] [address] , [address], [place], [address], [place]. tel:[phone] Referring Provider: Jose Rasheed [address] [place] [address] [address], [place], [place], [facility]. tel:[phone] Family History Family Member Type Diagnosis Age At Onset No Information Payers Payer name Insurance type Covered constitution party ID Authoriza tion(s) No Information Social History Type Description Quantity Date Captured Comments Sex Female Smoking Status No Information Chief Complaint And Reason For Visit No Information Reason For Referral Reason For Referral No Information History Of Present Illness Encounter Date Complaint History Of Prese nt Illness No Information Functional Status Date Functional Assessmen t No Information Instructions Date Instruction Additional Infor mation No Information Assessments Type Assessment Date No Information Patient Care Teams Name Effective Dates (start - stop) Status Members No Information
[2024-12-31 00:44] VITALS: BP 136/84; PULSE 81; RESP 18; TEMP 36.8; O2SAT 100
--- OUTSIDE RECORDS SUMMARY | 2024-12-31 01:30 | XMS_ITS | Referral Summary ---
Author Organization [facility] Address [address] [place] [address] Care Team Providers Care Medicine Teacher Name Role Phone Amber Gray MD Primary Care Provide r Encounters Date Type Department Care Team Description 12/28/2024 1:20 PM CDT Ancillary Procedure [facility] Cardiology at [address] [place] [address] Palpitation; ECG abnormal 12/15/2024 9:45 AM CDT Ancillary Procedure [facility] Cardiology [address] [facility] [address] [place] [address] Palpitation; ECG abnormal from Last [...] (07/19/2019): Added automatically from request for surgery [id number] Social History Tobacco Use Types Packs/Day Years Used Date Smoking Tobacco: Never Smokeless Tobacco: Never Comments Unknown Sex and Gender Information Value Date Recorded Sex Assigned at Not on file Legal Sex Female 2:50 PM MEMBERSHIP MANAGER Gender Identity Not on file Sexual Orientation Not on file Last Filed Vital Signs Vital Sign Reading Time Taken Comments Blood Pressure 145/87 05/15/2022 9:08 AM MEMBERSHIP MANAGER Pulse 86 05/15/2022 9:08 AM MEMBERSHIP MANAGER Temperature 36.7 C (98 F) 11/05/2019 11:43 PM CDT Respiratory Rate 16 05/15/2022 9:08 AM MEMBERSHIP MANAGER Oxygen Saturation 100% 05/15/2022 9:08 AM MEMBERSHIP MANAGER Inhaled Oxygen Concentration - - Weight 96.2 kg (212 lb) 05/15/2022 9:08 AM MEMBERSHIP MANAGER Height 157.5 cm (5' 2) 05/15/2022 9:08 AM MEMBERSHIP MANAGER Body Mass Index 38.78 05/15/2022 9:08 AM MEMBERSHIP MANAGER Plan of Treatment Not on file Procedures [...] to complete this document. Renard Clinton MD, [facility] Amber Gray MD CV STRESS PROCEDURES Final Result * MAMMOGRAPHY, TOMOGRAPHY, BILATERAL (12/02/2016 8:59 PM CDT) Anatomical Region Laterality Modality Breast Bilateral Mammography 12/02/2016 8:59 PM CDT Narrative 12/02/2016 8:59 PM CDT Acc#: [id number] M 0034 - Screening Mamm W Dimitri [...] M.D. TECHNOLOGIST: SHUBHAM WAN TECHNOLOGIST MEDICAL IMAGING TOBACCO WAREHOUSE MANAGER: [employer] TRANSCRIBE DATE/TIME: Dec 02 2016 4:13P RADIOLOGIST: ADRIENNE CURRAN M.D. READ ON: Dec 02 2016 4:17P ORDERING DR: AMBER GRAY M.D. THIS DOCUMENT HAS BEEN ELECTRONICALLY SIGNED BY: ADRIENNE CURRAN M.D. ON: Dec 02 2016 4:13P Attending: AMBER GRAY Requesting: AMBER GRAY Requesting Attending Attending ID: [id number] Requesting ID: [id number] Report To 1 ID: Report To 1 Name: , Report To 1 FAX: -- Report To 2 ID: Report To 2 Name: , Report To 2 FAX: -- NextGen Order #: Procedure Note Miscellaneous, Not In File / Provider, MD Leela - 12/02/2016 Acc#: [id number] [facility] 0034 - Screening Mamm W Dimitri [...] M.D. TECHNOLOGIST: SHUBHAM WAN, TECHNOLOGIST MEDICAL IMAGING TOBACCO WAREHOUSE MANAGER: [facility] TRANSCRIBE DATE/TIME: Dec 02 2016 4:13P RADIOLOGIST: ADRIENNE CURRAN M.D. READ ON: Dec 02 2016 4:17P ORDERING DR: AMBER GRAY M.D. THIS DOCUMENT HAS BEEN ELECTRONICALLY SIGNED BY: ADRIENNE CURRAN M.D. ON: Dec 02 2016 4:13P Attending: AMBER GRAY Requesting: AMBER GRAY Requesting Attending Attending ID: [id number] Requesting ID: [id number] Report To 1 ID: Report To 1 Name: , Report To 1 FAX: -- Report To 2 ID: Report To 2 Name: , Report To 2 FAX: -- NextGen Order #: us Not In File Miscellaneous IMG MAMMO PROCEDURES F inal Result from Last 3 Months or Most Recently Relevant to Health Maintenance Insurance CIGNA [facility] H[facility]PPO Address: [address] [address] [place] [address] [employer]IGNA [employer] [place] PPO Advance Directives For more information, please contact: [phone] * Full Code (Latest Code Status on File) Date Activated Date Inactivated Comments 08/22/2019 10:57 AM 08/22/2019 4:15 PM * Full Code Date Activated Date Inactivated Comments 08/22/2019 10:57 AM 08/22/2019 10:57 AM Care Teams Medicine Teacher Relationship Specialty Start Date End Date Amber Gray MD [address] [place] [address] PCP - General 12/02/16
--- OUTSIDE RECORDS SUMMARY | 2024-12-31 01:30 | XMS_ITS | Clinical Summary ---
Author Organization [facility] Address [address] [place] [id number] Care Team Providers Care Leather Tanner Name Role Phone Amber Gray MD Primary [...] (07/19/2019): Added automatically from request for surgery [id number] Encounters Date Type Department Care Team Description 12/28/2024 1:20 PM CDT Ancillary Procedure [facility] Cardiology at [address] [place] [address] Palpitation; ECG abnormal 12/15/2024 9:45 AM CDT Ancillary Procedure [facility] Cardiology [address] [facility] [address] [place] [id number] Palpitation; ECG abnormal from Last 3 Months Social History Tobacco Use Types Packs/Day Years Used Date Smoking Tobacco: Never Smokeless Tobacco: Never Comments Unknown Sex and Gender Information Value Date Recorded Sex Assigned at Not on file Legal Sex Female 2:50 PM SPECIAL PROCEDURES TECH Gender Identity Not on file Sexual Orientation Not on file Obstetrics History Last Filed Vital Signs Vital Sign Reading Time Taken Comments Blood Pressure 145/87 05/15/2022 9:08 AM SPECIAL PROCEDURES TECH Pulse 86 05/15/2022 9:08 AM SPECIAL PROCEDURES TECH Temperature 36.7 C (98 F) 11/05/2019 11:43 PM CDT Respiratory Rate 16 05/15/2022 9:08 AM SPECIAL PROCEDURES TECH Oxygen Saturation 100% 05/15/2022 9:08 AM SPECIAL PROCEDURES TECH Inhaled Oxygen Concentration - - Weight 96.2 kg (212 lb) 05/15/2022 9:08 AM SPECIAL PROCEDURES TECH Height 157.5 cm (5' 2) 05/15/2022 9:08 AM SPECIAL PROCEDURES TECH Body Mass Index 38.78 05/15/2022 9:08 AM SPECIAL PROCEDURES TECH Plan of Treatment Health Maintenance Due Date [...] to complete this document. Renard Clinton MD, [facility] Amber Gray MD CV STRESS PROCEDURES Final Result * MAMMOGRAPHY, TOMOGRAPHY, BILATERAL (12/02/2016 8:59 PM CDT) Anatomical Region Laterality Modality Breast Bilateral Mammography 12/02/2016 8:59 PM CDT Narrative 12/02/2016 8:59 PM CDT Acc#: [id number] [facility] [id number] - Screening Mamm W Dimitri Bi [...] M.D. TECHNOLOGIST: SHUBHAM WAN, TECHNOLOGIST MEDICAL IMAGING CORPORATE DIRECTOR OF HUMAN RESOURCES: [facility] TRANSCRIBE DATE/TIME: Dec 02 2016 4:13P RADIOLOGIST: ADRIENNE CURRAN M.D. READ ON: Dec 02 2016 4:17P ORDERING DR: AMBER GRAY M.D. THIS DOCUMENT HAS BEEN ELECTRONICALLY SIGNED BY: ADRIENNE CURRAN M.D. ON: Dec 02 2016 4:13P Attending: AMBER RGAY Requesting: AMBER GRAY Requesting Attending Attending ID: [id number] Requesting ID: [id number] Report To 1 ID: Report To 1 Name: , Report To 1 FAX: -- Report To 2 ID: Report To 2 Name: , Report To 2 FAX: -- NextGen Order #: Procedure Note Miscellaneous, Not In File / Provider, MD Leela - 12/02/2016 Acc#: [id number] [facility] 0034 - Screening Mamm W Dimitri Bi [...] M.D. TECHNOLOGIST: SHUBHAM WAN TECHNOLOGIST MEDICAL IMAGING CORPORATE DIRECTOR OF HUMAN RESOURCES: [facility] TRANSCRIBE DATE/TIME: Dec 02 2016 4:13P RADIOLOGIST: ADRIENNE CURRAN M.D. READ ON: Dec 02 2016 4:17P ORDERING DR: AMBER GRAY M.D. THIS DOCUMENT HAS BEEN ELECTRONICALLY SIGNED BY: ADRIENNE CURRAN M.D. ON: Dec 02 2016 4:13P Attending: AMBER GRAY Requesting: AMBER GRAY Requesting Attending Attending ID: [id number] Requesting ID: [id number] Report To 1 ID: Report To 1 Name: , Report To 1 FAX: -- Report To 2 ID: Report To 2 Name: , Report To 2 FAX: -- NextGen Order #: us Not In File Miscellaneous IMG MAMMO PROCEDURES F inal Result from Last 3 Months or Most Recently Relevant to Health Maintenance Insurance [employer] Address: [facility] [address] [place] [address] [facility] CHOICE [facility] H[facility]/PPO Address: [address] [address] [place] [address] [facility] [employer] Address: [address] [place] [address] [place] [address] [employer] Address: [facility] [id number] [place] [address] [employer] [place] P[employer] Advance Directives For more information, please contact: [phone] * Full Code (Latest Code Status on File) Date Activated Date Inactivated Comments 08/22/2019 10:57 AM 08/22/2019 4:15 PM * Full Code Date Activated Date Inactivated Comments 08/22/2019 10:57 AM 08/22/2019 10:57 AM Care Teams Leather Tanner Relationship Specialty Start Date End Date Amber Gray MD [address] [place] [address] PCP - General 12/02/16
--- OUTSIDE RECORDS SUMMARY | 2024-12-31 01:30 | XMS_ITS | Encounter Summary ---
Author Organization [facility] Address [address] [place] [address] Care Team Providers Care Auto Electrician Name Role Phone Unavailable Primary Care Provider Unavailabl e Encounter Details Date Type Department Care Team (Late st Contact Info) Description 11/12/2018 Abstract [facility] CONVERSION [address] [place] [address] , Generic Conversion, Social History Tobacco Use [...]
--- OUTSIDE RECORDS SUMMARY | 2024-12-31 01:30 | XMS_ITS | Continuity of Care Document ---
[facility] Address [address] [place] [address] [address] [place] [address] Phone Care Team Providers Care Tooling Engineer Name Role Phone Jose Vasquez Unavailable Unavailable Advance Directives Directive Yes / No Effective Date File Name No Information Encounters Encounter Description Practice Location Reason(s) For Visit Diagnoses Date Provider Providers Copied on Encounter [facility], [address] [place] [address] [address], [place], [place], [id number], [place] tel:[phone] SEC [facility] [place] No Information [address]. [address] [place] [address] , [address], [place], [address], [place]. tel:[phone] Referring Provider: Jose Rasheed [address] [place] [address] [address], [place], [place], [facility]. tel:[phone] Family History Family Member Type Diagnosis Age At Onset No Information Payers Payer name Insurance type Covered libertarian ID Authoriza tion(s) No Information Social History [...]
--- OUTSIDE RECORDS SUMMARY | 2024-12-31 01:30 | XMS_ITS | Clinical Summary ---
Author Organization [facility] Address [address] [place] [address] Care Team Providers Care Lace Cutter Name Role Phone Unavailable Primary Care Provider [...]
--- NOTE | 2024-12-31 04:59 | ED.LOWEXIN ---
HPI - Extremity Injury (Lower) General Chief Complaint: Extremity Injury, Lower Stated Complaint: left foot pain Time Seen by Provider: 12/31/24 01:03 History of Present Illness HPI Narrative: A earlier today patient accidentally dropped a charging block on her left foot, after the initial severe pain it felt better and she was able to walk around and take a long walk with her , however when she came back she started having some more pain to her foot, especially the top. Related Data Home Medications ?Medication ?Instructions ?Recorded ?Confirmed ?Last Taken ?Type albuterol sulfate 90 mcg/actuation 2 puff inhalation QID PRN Wheezing 07/07/19 09/29/22 Unknown History aerosol inhaler (Ventolin HFA) aspirin 81 mg tablet,delayed 81 mg PO DAILY 07/07/19 09/29/22 Unknown History release (Aspir-) duloxetine 60 mg capsule,delayed 60 mg PO BID 07/07/19 09/29/22 Unknown History release (Cymbalta) furosemide 40 mg tablet 40 mg PO DAILY 07/07/19 09/29/22 Unknown History metoprolol tartrate 25 mg tablet 25 mg PO BID 07/07/19 09/29/22 Unknown History [id number]-II 200 mcg-vit K 100 1 cap PO DAILY 07/07/19 09/29/22 Unknown History mcg-lycop 500 [id number] capsule (Daily Multivitamin) pantoprazole 40 mg tablet,delayed 40 mg PO DAILY 11/05/19 09/29/22 Unknown History release fluticasone furoate 100 1 inh inhalation DAILY 09/29/22 09/29/22 Unknown History mcg/actuation blister powder for inhalation (Arnuity Ellipta) liraglutide (weight loss) 3 mg/0.5 3 mg subcut DAILY 09/29/22 09/29/22 Unknown History mL (18 mg/3 mL) subcut pen injector (Saxenda) venlafaxine 150 mg 150 mg PO DAILY 09/29/22 09/29/22 Unknown History capsule,extended release 24 hr Allergies Allergy/AdvReac Type Severity Reaction Status Date / Time Sulfa (Sulfonamide Allergy Unknown RASH Verified 12/31/24 00:47 Antibiotics) Review of Systems Review of Systems: All systems reviewed & are unremarkable except as noted in HPI and below PMFSH Past Medical History Medical History (Updated 12/31/24 @ 01:11 by Shefali Lassiter MD) Hypertension Asthma with COPD Kidney stones Migraines Gastroesophageal reflux disease Anemia Depression Arthritis Ulcer Asthma Surgical History Surgical History (Updated 09/29/22 @ 22:26 by Asiya Wang PA-C) History of cardiac catheterization History of tubal ligation History of hysterectomy History of cholecystectomy Family History Family History Father Diabetes mellitus Hypertension Heart disease Emphysema lung Smokeless tobacco use Glaucoma Cataract Heart failure Mother Diabetes mellitus Cerebrovascular accident Osteoporosis Sibling Diabetes mellitus Cerebrovascular accident Sibling Diabetes mellitus Heart disease Smokeless tobacco use Malignant neoplasm of prostate Sibling Diabetes mellitus Epilepsy Suicide Sibling Diabetes mellitus Heart disease Smokeless tobacco use Congestive heart failure Sibling Diabetes mellitus Cerebrovascular accident Sibling Heart disease Smokeless tobacco use Cirrhosis Alcohol abuse Sibling Epilepsy Tumor liver Sibling Cerebrovascular accident Heart disease Smokeless tobacco use Sibling Glaucoma Sibling Heart disease Smokeless tobacco use Crohn disease Sibling Brain tumor Sibling Heart disease Smokeless tobacco use Sibling Graves disease Social History Social History (Updated 09/29/22 @ 22:26 by Asiya Wang PA-C) Social History: Surrogate medical decision maker: Raimundo Arce, spouse. Code status: Full code. Smoking status: Never smoker Second hand tobacco smoke exposure: Yes Alcohol intake: never Substance use: never Lack of Transportation: No Lack of Food: Never True Current Housing: I Have Housing Concerned About Future Housing: No Difficulty Paying Gas/Electric Bills: No Difficulty Paying for Meds: No Currently Unemployed: No Education: Associate Degree Difficulty w/ Childcare or Family Care: No Additional living arrangements comments: Lives with spouse in [place]. 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 Spiritual care concerns: No Exam Narrative: EXAMINATION OF ORGAN SYSTEMS/BODY AREAS: Constitutional: Vital signs per nursing GENERAL:[No acute distress, non-toxic appearing.] HEAD: Normal with no signs of head trauma. EYES: EOMI, conjunctiva normal ENT: Hearing grossly intact LUNGS: Nonlabored breathing. HEART: [Regular rate and rhythm], normal DP pulse ABD: [Soft], [nontender to palpation] EXT: Some slight tenderness to palpation mostly to the top of the left foot, patient able to tolerate gentle range of motion to the left ankle and foot and toes SKIN: [No rashes or lesions.] NEURO: [Alert and oriented x 3. No gross focal sensory or strength deficits.] PSYCH: Normal affect Course Vital Signs Vital signs: Vital Signs Temperature 98.3 F 12/31/24 00:44 Pulse Rate 81 12/31/24 00:44 Respiratory Rate 18 12/31/24 00:44 Blood Pressure 136/84 12/31/24 00:44 Pulse Oximetry 100 12/31/24 00:44 Oxygen Delivery Room Air 12/31/24 00:44 Temperature 98.3 F 12/31/24 00:44 Pulse Rate 81 12/31/24 00:44 Respiratory Rate 18 12/31/24 00:44 Blood Pressure 136/84 12/31/24 00:44 Pulse Oximetry 100 12/31/24 00:44 Oxygen Delivery Room Air 12/31/24 00:44 MDM - Extremity Injury (Lower) MDM Narrative Medical decision making narrative: 59F p/w R foot pain after dropping a charging block on L foot. She is ambulating on it, on exam she is NVI without deformity. Foot xr on my independent interpretation does not show any obvious fracture or dislocation. I will put her in a hard shoe and have her follow-up with podiatry. Return precautions discussed. Discharge Plan Discharge Clinical Impression: Foot injury Patient Disposition: Home Condition: Stable Instructions: Crush Injury (ED) Additional Instructions: You can follow-up with the corporate real estate specialist, and return to the ER for any further issues. Please use ice on your foot and wear the hard shoe for the first few days. Patient Language: Sinhala Prescriptions: No Action pantoprazole 40 mg tablet,delayed release (DR/EC) 40 mg PO DAILY venlafaxine 150 mg capsule,extended release 24hr 150 mg PO DAILY Arnuity Ellipta 100 mcg/actuation blister with device 1 inh INHALATION DAILY Saxenda 3 mg/0.5 mL (18 mg/3 mL) pen injector 3 mg SUBCUT DAILY nystatin 100,000 unit/mL suspension 1 ml PO QID 10 Days Qty: 40 0RF Rx Instructions: swish and swallow ondansetron 4 mg tablet,disintegrating 4 mg PO Q8H Qty: 7 0RF furosemide 40 mg Tablet 40 mg PO DAILY metoprolol tartrate 25 mg Tablet 25 mg PO BID duloxetine [Cymbalta] 60 mg Capsule,Delayed Release(Dr/Ec) 60 mg PO BID Daily Multivitamin 200-100-500 mcg Capsule 1 cap PO DAILY aspirin [Aspir-81] 81 mg Tablet,Delayed Release (Dr/Ec) 81 mg PO DAILY albuterol sulfate [Ventolin HFA] 90 mcg/actuation Hfa Aerosol Inhaler 2 puff INHALATION QID PRN (Reason: Wheezing) Follow-up/Referrals: Claude Choudhary Jr., DPM [Physician] - 2 Days José Miguel Nayak MD [Primary Care Provider] -
== END 2024-12-31 01:50 | disposition home or self-care (01) ==
LOC: ANHED 01:28
PROVIDERS: Emergency Provider Emergency Medicine; PCP Family Medicine
DX: S99.922A Unspecified injury of left foot, initial encounter (principal); W20.8XXA Other cause of strike by thrown, projected or falling object, initial encounter
CPT/HCPCS: 73630; 99283